=== PATIENT | male | born 1970 | race Hispanic/Latino ===

== ENCOUNTER 2017-08-19 00:44 | Emergency (ER) | payer OTHER, MEDICAID, SELFPAY ==
[2017-08-19 00:53] VITALS: BP 170/108; PULSE 107; RESP 12; TEMP 36.7; O2SAT 100; BMI 36.6
--- NOTE | 2017-08-19 00:57 | ED.SKABFB ---
HPI - Skin/Abscess/Foreign Bdy General Chief complaint: Skin/Abscess/Foreign Body Stated complaint: CELLULITIS ISNT HEALING Time Seen by Provider: 08/19/17 00:46 Source: patient Mode of arrival: ambulatory Limitations: no limitations History of Present Illness HPI narrative: 47-year-old male here for evaluation of worsening right lower extremity cellulitis. Patient states that several weeks ago he started noticing red painful areas on the inside of his right lower extremity. He states that approximately 1 week ago he went to [facility] where he was given IV antibiotics and sent home with a prescription for Bactrim and Keflex. He states that he has been taking these medications as prescribed and his right lower extremity symptoms seem to be improving until approximately 1 day ago when he noticed the redness and the swelling and the pain worsen. He has had subjective fevers at home. No vomiting. Increasing pain and redness and swelling in his right lower extremity. Related Data Allergies Allergy/AdvReac Type Severity Reaction Status Date / Time INGREDIENT: NKA - NO KNOWN Allergy Unknown Uncoded 06/30/17 12:09 ALLERGIES Review of Systems Constitutional Denies chills, Denies excessive sweating, Denies fatigue, Reports fever(s), Denies lethargy and Denies weakness Cardiovascular Denies chest pain, Denies irregular heart rhythm, Denies palpitations and Denies dyspnea Respiratory Denies cough, Denies dyspnea and Denies wheezing Gastrointestinal Gastrointestinal: Denies nausea and Denies vomiting Genitourinary Denies dysuria and Denies urinary urgency Musculoskeletal Reports joint swelling ( Bilateral knee pain that is not new) Integumentary/Breasts Comments: redness, swelling, pain to the right lower extremity from the knee to the feet, no blisters Neurologic Denies burning sensations and Denies weakness Comments: no changes in station to right lower extremity Endocrine Denies excessive sweating, Denies fatigue, Denies flushing and Denies palpitations Hematologic/Lymphatic Denies easy bruising Allergic/Immunologic Denies urticaria and Denies wheezing [facility] Social History Smoking Status: Current every day smoker Exam Initial Vital Signs Initial Vital Signs: Vital Signs Temperature 98.0 F 08/19/17 00:53 Pulse Rate 107 H 08/19/17 00:53 Respiratory Rate 12 08/19/17 00:53 Blood Pressure 170/108 H 08/19/17 00:53 Pulse Oximetry 100 08/19/17 00:53 Const General: cooperative and well developed Nutritional Appearance: well nourished Orientation: alert, awake, oriented x3 and not confused Resp Effort & Inspection: normal respiratory effort, able to speak in complete sentences, no respiratory distress and no use of accessory muscles Auscultation: clear to auscultation bilaterally, no rales, no rhonchi and no wheezes Cardio Rate: tachycardic Rhythm: regular rhythm Heart Sounds: no click, no gallops, no murmurs and no rubs Pulses: normal peripheral pulses GI Inspection: normal to inspection Palpation: soft Skin Other: patient with circumferential redness from just distal to the knee to the toes on the right lower extremity. 2+ swelling in this area. Warm to the touch. No vesicles. No pustules. Neuro Other: sensation intact to light touch right lower extremity Extrem Other: no gross deformities, swelling to right lower extremity see skin section for details Course Orders Ordered: ED Orders 08/19/17 01:30 Basic Metabolic Panel Stat Complete Blood Count AUTO DIFF Stat Lactate (Lactic Acid) Stat 08/19/17 01:55 Blood Culture Stat Vancomycin HCl/Dextrose (Vancomycin) 1,000 mg in 200 mls @ 200 mls/hr IV NOW ONE Stop: 08/19/17 03:33 Discontinued Medications Clindamycin Phosphate (Cleocin) 600 mg in 50 mls @ 50 mls/hr IV Q8H ALBERT Last Admin: 08/19/17 01:31 Dose: 50 mls/hr Vital Signs - 8 hr 08/19/17 00:53 Temperature 98.0 F Pulse Rate 107 H Respiratory Rate 12 Blood Pressure 170/108 H Pulse Oximetry 100 MDM - Skin/Abscess/Foreign Bdy Lab Data Attestation: I reviewed the patient's lab results. Result diagrams: 08/19/17 01:30 08/19/17 01:30 Lab Results 08/19/17 08/19/17 08/19/17 Range/Units 01:30 01:30 01:30 WBC 6.2 (4.5-11.0) X10^3/uL RBC 4.88 (4.5-5.9) X10^6/uL Hgb 14.6 (13.5-17.5) g/dL Hct 41.7 (41-53) % MCV 85.4 (80-100) fL MCH 29.9 (26-34) PG MCHC 35.0 (30-36) % RDW 13.2 (11.6-14.8) % Plt Count 255 (150-400) X10^3/uL Neut % (Auto) 52.7 (50-75) % Lymph % (Auto) 35.5 (25-40) % [place] % (Auto) 5.9 (3-14) % Eos % (Auto) 5.0 H (2-4) % Baso % (Auto) 0.9 (0-2) % Neut # (Auto) 3200 (3085-6083) /uL Sodium 141 (137-145) mmol/L Potassium 4.3 (3.4-5.1) mmol/L Chloride 104 (98-107) mmol/L Carbon Dioxide 22 (22-32) mmol/L BUN 12 (9-20) mg/dL Creatinine 1.20 (0.66-1.25) mg/dL Estimated GFR > 60.0 (>60) mL/min BUN/Creatinine Ratio 10.0 (6-22) Glucose 108 H (70-100) mg/dL Lactate 1.9 (0.7-2.1) mmol/L Calcium 9.2 (8.4-10.2) mg/dL MDM Narrative Medical decision making narrative: Patient with history And physical exam consistent with right lower extremity cellulitis. Has been on oral antibiotics at home which seemed to be improving for the past couple days but then worsened yesterday. Is not septic. Received IV antibiotics here in the emergency department. Secondary to his physical exam and failure of outpatient oral treatment will admit to the hospital for IV antibiotics. Also consider DVT however his physical exam here in the emergency department is more consistent with cellulitis. Discussed the case with Dr. Simmons who will admit for IV antibiotics. discussed admission with the patient and family was at bedside. They expressed understanding and agreement with plan Discharge Plan Departure Patient Disposition: Admitted As Inpatient Clinical Impression: Cellulitis
[2017-08-19] MEDS: CLINDAMYCIN 600 MG/50 ML PIGGYBACK 50 MG IV (01:31)
[2017-08-19 01:50] LABS: Add Manual Diff / Slide Review NO; Basophils Percent Auto 0.9 % (0-2); Hematocrit 41.7 % (41-53); Hemoglobin 14.6 g/dL (13.5-17.5); Lymphocytes Percent Auto 35.5 % (25-40); Mean Corpuscular Hemoglobin 29.9 PG (26-34); Mean Corpuscular Volume 85.4 fL (80-100); Monocytes Percent Auto 5.9 % (3-14); Neutrophils Absolute Auto 3200 /uL (3000-5900); Neutrophils Percent Auto 52.7 % (50-75); Platelet Count 255 X10^3/uL (150-400); Red Blood Cell Count 4.88 X10^6/uL (4.5-5.9); Red Cell Distribution Width 13.2 % (11.6-14.8); White Blood Cell Count 6.2 X10^3/uL (4.5-11.0)
[2017-08-19 01:56] LABS: Lactate (Lactic Acid) 1.9 mmol/L (0.7-2.1)
[2017-08-19 01:57] LABS: Blood Urea Nitrogen 12 mg/dL (9-20); Calcium 9.2 mg/dL (8.4-10.2); Carbon Dioxide 22 mmol/L (22-32); Chloride 104 mmol/L (98-107); Estimated Glomerular Filt Rate > 60.0 mL/min (>60); Glucose 108 mg/dL (70-100); HEMOLYSIS < 15 (0-50); Potassium 4.3 mmol/L (3.4-5.1); Sodium 141 mmol/L (137-145)
[2017-08-19 03:10] VITALS: BP 148/80; PULSE 80; RESP 18; TEMP 36.6; O2SAT 98
== END 2017-08-19 03:01 | disposition left against medical advice (07) ==
PROVIDERS: Emergency Provider Emergency Medicine
DX: L03.115 Cellulitis of right lower limb (principal)
CPT/HCPCS: 36415; 36591; 80048; 83605; 85025; 87040; 96374; 99282; 99283

== ENCOUNTER 2017-08-21 00:56 | Inpatient (IN) | payer OTHER, MEDICAID, SELFPAY ==
[2017-08-21] VITALS (9 sets, daily range): BP systolic 123–156; BP diastolic 73–90; PULSE 63–96; RESP 16–22; TEMP 36.1–36.8; O2SAT 96–99; BMI 36.6
--- NOTE | 2017-08-21 01:17 | ED.SKABFB ---
HPI - Skin/Abscess/Foreign Bdy General Chief complaint: Skin/Abscess/Foreign Body Stated complaint: CELLULITIS NOT HEALING Time Seen by Provider: 08/21/17 01:00 Source: patient Mode of arrival: ambulatory Limitations: no limitations History of Present Illness HPI narrative: 47-year-old male who I evaluated in the emergency department couple days ago for right lower extremity cellulitis. At that time he was taking Bactrim and Keflex provided by at an outside emergency department for cellulitis. The time I saw him his symptoms were not improving and I felt that he was failing outpatient treatment. We did discuss admitting to the hospital and initially he agreed to this. I talked to the hospitalist to admit him but prior to being transferred to the floor the patient changed his mind and wanted to be discharged. He did sign out against medical advice. I did switch him from Bactrim and Keflex to clindamycin. Patient returns today for no improvement in the cellulitis of his right lower extremity and potentially some worsening as he said earlier today he had streaking up the inside of his leg. Today he stated that he was willing to be admitted to the hospital. Related Data Allergies Allergy/AdvReac Type Severity Reaction Status Date / Time INGREDIENT: NKA - NO KNOWN Allergy Unknown Uncoded 06/30/17 12:09 ALLERGIES Review of Systems Constitutional Denies chills, Denies fever(s), Denies lethargy and Denies weakness Cardiovascular Denies chest pain, Denies irregular heart rhythm, Denies lightheadedness, Denies palpitations, Denies dyspnea, Denies dyspnea on exertion and Denies orthopnea Respiratory Denies cough, Denies dyspnea, Denies dyspnea on exertion and Denies wheezing Musculoskeletal Comments: Swelling and redness and pain to his right lower extremity [id number] Integumentary/Breasts Comments: Redness and swelling to his right lower extremity below the knee Neurologic Denies weakness Comments: No tingling to his right lower extremity Endocrine Denies palpitations Hematologic/Lymphatic Denies easy bruising Allergic/Immunologic Denies wheezing [facility] Social History Smoking Status: Current every day smoker Exam Initial Vital Signs Initial Vital Signs: Vital Signs Temperature 98.1 F 08/21/17 01:10 Pulse Rate 89 08/21/17 01:10 Respiratory Rate 16 08/21/17 01:10 Blood Pressure 156/90 H 08/21/17 01:10 Pulse Oximetry 96 08/21/17 01:10 Resp Effort & Inspection: normal respiratory effort, able to speak in complete sentences, no respiratory distress and no use of accessory muscles Auscultation: clear to auscultation bilaterally, no rales, no rhonchi and no wheezes Cardio Rate: regular rate Rhythm: regular rhythm Heart Sounds: no click, no gallops, no murmurs and no rubs Pulses: normal peripheral pulses Skin Other: Red, warm, swollen right lower extremity from the knee to the ankle. Does have a small amount of streaking on the inside of his leg proximal to the knee. No blisters. No pustules. No drainage. Neuro Other: Sensation intact to light touch right lower extremity Extrem Other: 2+ pitting edema right lower extremity from the knee to the foot redness at this area. No pain with movement of the knee or the ankle Course Orders Ordered: ED Orders 08/21/17 01:35 Basic Metabolic Panel Stat Blood Culture Stat Complete Blood Count AUTO DIFF Stat Lactate (Lactic Acid) Stat Vancomycin HCl/Dextrose (Vancomycin) 1,500 mg in 300 mls @ 200 mls/hr 15 mg/kg (1500 mg) IV NOW ONE Stop: 08/21/17 02:52 Ondansetron HCl 4 mg/ Sodium (Chloride) 102 mls @ 204 mls/hr IV Q6HR PRN PRN Reason: Nausea And Vomiting Oxycodone/Acetaminophen (Percocet 5/325) 1 tab PO Q4HR PRN PRN Reason: Pain, Severe Discontinued Medications Morphine Sulfate (Morphine) 4 mg IV NOW ONE Stop: 08/21/17 01:52 Vital Signs - 8 hr 08/21/17 01:10 Temperature 98.1 F Pulse Rate 89 Respiratory Rate 16 Blood Pressure 156/90 H Pulse Oximetry 96 MDM - Skin/Abscess/Foreign Bdy Lab Data Attestation: I reviewed the patient's lab results. Result diagrams: 08/21/17 01:35 08/21/17 01:35 Lab Results 08/21/17 Range/Units 01:35 WBC 7.2 (4.5-11.0) X10^3/uL RBC 4.42 L (4.5-5.9) X10^6/uL Hgb 12.8 L (13.5-17.5) g/dL Hct 38.1 L (41-53) % MCV 86.2 (80-100) fL MCH 28.9 (26-34) PG MCHC 33.5 (30-36) % RDW 13.3 (11.6-14.8) % Plt Count 240 (150-400) X10^3/uL Neut % (Auto) 58.6 (50-75) % Lymph % (Auto) 30.9 (25-40) % [place] % (Auto) 6.5 (3-14) % Eos % (Auto) 3.3 (2-4) % Baso % (Auto) 0.7 (0-2) % Neut # (Auto) 4200 (6559-0740) /uL MDM Narrative Medical decision making narrative: Patient's right lower extremity cellulitis diagnosed based on the fact that it is swollen, red, warm and painful. Has been on Keflex and Bactrim without improvement and now on clinda for the past several days without any improvement. Potentially some worsening as the patient states that there was some streaking on the upper portion of his leg this morning and her some evidence of that now. Is afebrile. Does not have an elevated white blood cell count. Some labs pending at the time of admission. I discussed the case with Dr. Simmons who accepts admitting the patient for IV antibiotics. Patient was given IV vancomycin here in the ER. I also discussed with the inpatient team the possibility of obtaining right lower extremity ultrasound for evaluation of possible DVT as this could also be causing his symptoms. I discussed the case with the patient and family members were at bedside. He agrees to be admitted to the hospital today. They expressed understanding and agreement with plan Discharge Plan Departure Patient Disposition: Admitted As Inpatient Clinical Impression: Cellulitis
[2017-08-21 01:47] LABS: Add Manual Diff / Slide Review NO; Basophils Percent Auto 0.7 % (0-2); Eosinophils Percent Auto 3.3 % (2-4); Hematocrit 38.1 % (41-53); Hemoglobin 12.8 g/dL (13.5-17.5); Lymphocytes Percent Auto 30.9 % (25-40); Mean Corpuscular HGB Conc 33.5 % (30-36); Mean Corpuscular Hemoglobin 28.9 PG (26-34); Mean Corpuscular Volume 86.2 fL (80-100); Monocytes Percent Auto 6.5 % (3-14); Neutrophils Absolute Auto 4200 /uL (3000-5900); Neutrophils Percent Auto 58.6 % (50-75); Platelet Count 240 X10^3/uL (150-400); Red Blood Cell Count 4.42 X10^6/uL (4.5-5.9); Red Cell Distribution Width 13.3 % (11.6-14.8); White Blood Cell Count 7.2 X10^3/uL (4.5-11.0)
[2017-08-21 01:56] LABS: BUN Creatinine Ratio 11.8 (6-22); Blood Urea Nitrogen 13 mg/dL (9-20); Carbon Dioxide 21 mmol/L (22-32); Chloride 105 mmol/L (98-107); Estimated Glomerular Filt Rate > 60.0 mL/min (>60); Glucose 134 mg/dL (70-100); HEMOLYSIS < 15 (0-50); Lactate (Lactic Acid) 1.8 mmol/L (0.7-2.1); Sodium 140 mmol/L (137-145)
[2017-08-21] MEDS: MORPHINE 4 MG/ML INJ IV (02:00)
[2017-08-21] MEDS: VANCOMYCIN 1,500 MG in SODIUM CHLORIDE 0.9% 500 ML 333.333 ML IV (02:09)
--- NOTE | 2017-08-21 03:10 | PC.ADMIT ---
Addendum entered by Kasandra Garrison R.N. 08/21/17 04:08: 0330 update- went to give pt pain pill, pt and spouse in the bathroom. Pt spouse asked if she could sleep in the bed with pt, told her no. pt spouse given blanket and pillow. currently they are watching tv. Original Note: Admission Note: The patient,Etienne Ramos,47 y/o, was given written information regarding hospital policies, unit procedures and contact persons. Patient's smoking status: Current every day smoker. Vital Signs - 8 hr 08/21/17 01:10 08/21/17 02:17 08/21/17 02:35 Temperature 98.1 F 98.2 F 97.5 F L Pulse Rate 89 83 74 Respiratory Rate 16 16 20 Blood Pressure 156/90 H 138/89 H Blood Pressure [Right Arm] 123/77 H Pulse Oximetry 96 97 99 Pt arrived to room 213 on a stretcher. IV vancomycin infusing at 333mL/hr. Pt tolerating well. Pt asked for sandwich and applesauce. Pt compliant with admission process and nursing assessments. Pt questions answered and instructed to call when needing assistance. Pt bed in lowest, locked position belongings and call light within reach,. pt ambulates steady gait. will continue to monitor.
[2017-08-21] MEDS: OXYCODONE/ACETAMINOPHEN 5/325 TABLET 1 TAB PO ×3 (03:26→17:38)
--- NOTE | 2017-08-21 09:42 | P.HP_ITS ---
History of Present Illness Chief complaint: CELLULITIS NOT HEALING Narrative: Etienne Ramos is a 47 year old male presents with redness and swelling in his right leg. Symptoms started several days prior to his initial ER visit which was on August 19. On that visit he was diagnosed with cellulitis and we talked about admission but the patient was reluctant due to other commitments so he was placed on oral antibiotics sent home symptoms got worse we came back in early this morning for re-evaluation the legs been more swollen and red. He has had some fever at home also. Patient History Medical History High cholesterol (Acute) Surgical History History of appendectomy (Acute) History of cholecystectomy (Acute) Hx of tonsillectomy (Acute) Family & Social History Social History: household members significant other Prior Living Arrangements House Safety & Behavioral: Feels Safe in Current Yes Environment Been Physically Hurt or No Threatened By a Person Suicidal Ideation Description None Suicide Plan Description No Plan Tobacco & Substance use: Tobacco type cigarettes Smoking Status Current every day smoker alcohol intake current alcohol intake frequency holiday/special occasion Substance Use Type does not use Meds Home Medications Medication Instructions Recorded Confirmed Type Tylenol 500 mg PO PRN PRN 08/21/17 08/21/17 History Allergies Allergy/AdvReac Type Severity Reaction Status Date / Time No Known Allergies Allergy Verified 08/21/17 05:04 Review of Systems Review of Systems All systems reviewed & are unremarkable except as noted in HPI and below Exam Vital Signs (past 8 hours): Vital Signs - 8 hr 3 08/21/17 02:17 08/21/17 02:35 08/21/17 05:53 Temperature 98.2 F 97.5 F L 97.8 F Pulse Rate 83 74 80 Respiratory Rate 16 20 20 Blood Pressure 138/89 H 124/75 H Blood Pressure [Right Arm] 123/77 H Pulse Oximetry 97 99 99 3 08/21/17 08:27 Temperature 98.3 F Pulse Rate 78 Respiratory Rate 18 Blood Pressure 126/73 H Blood Pressure [Right Arm] Pulse Oximetry 98 Pulse Oximetry 98 Oxygen Delivery Method Room Air Oxygen Flow Rate 0 Narrative Exam Narrative: Pleasant middle-aged male no acute distress HEENT exam unremarkable Neck is supple no JVD Lungs are clear Heart regular rhythm Abdomen soft nontender Lower extremities the right lower extremity is swollen edematous from the foot including the foot all the way up into the thigh there is warmth and erythema ranging from the foot all the way up into the thigh. Left leg unaffected Neuro exam awake alert no focal deficits speech normal Objective Labs Result Diagrams: 08/21/17 01:35 08/21/17 01:35 Labs: Laboratory Results - last 24 hr 08/21/17 08/21/17 08/21/17 01:35 01:35 01:35 WBC 7.2 RBC 4.42 L Hgb 12.8 L Hct 38.1 L MCV 86.2 MCH 28.9 MCHC 33.5 RDW 13.3 Plt Count 240 Neut % (Auto) 58.6 Lymph % (Auto) 30.9 [place] % (Auto) 6.5 Eos % (Auto) 3.3 Baso % (Auto) 0.7 Neut # (Auto) 4200 Sodium 140 Potassium 4.0 Chloride 105 Carbon Dioxide 21 L BUN 13 Creatinine 1.10 Estimated GFR > 60.0 BUN/Creatinine Ratio 11.8 Glucose 134 H Lactate 1.8 Calcium 9.0 Assessment & Plan Plan: Plan: One. Cellulitis right lower extremity involving nearly and the entire extremity and this has been unresponsive to oral antibiotics. Plan to place him on IV vancomycin plan to do ultrasound for DVT also. Quality VTE Deep Vein Thrombosis/Pulmonary Embolism Present on Admission: No
--- NOTE | 2017-08-21 09:42 | PC.NURSE ---
Assess- Pt tolerating breakfast well. Denies pain at this time. R.leg with 2+ edema and pinkish/red from foot up to mid thigh. Pts skin is tight and shiny this morning. S.O. at bedside in chair sleeping. Up with 1P/sba when getting up to ambulate to the restroom. Pt is resting comfortably now.
[2017-08-21] MEDS: SODIUM CHLORIDE 0.9% FLUSH 10 ML IV ×2 (10:55→20:55)
[2017-08-21] MEDS: ENOXAPARIN 40 MG/0.4 ML SYRINGE SUBCUT (10:55)
[2017-08-21] MEDS: VANCOMYCIN 1,000 MG/200 ML FROZ.PIGGY 200 MG IV (14:22)
--- NOTE | 2017-08-21 15:43 | CM.DPC ---
DCP Initial Assessment: Case reviewed, EMR reviewed and met with patient and his significant other ?JJ? (Joann Fregoso) Pt is a 47yo male admitted as Inpatient on 08/21 for skin abscess/cellulitis under the care of the hospitalist team. PCP: He does not have a PCP at this time. Primary payor is: Patient listed as having [employer], but JJ states he no longer has this. She feels he has some other form of [employer] coverage, and looked through her paperwork for any information on this but was unable to come up with anything during this interview. [facility] notified of this situation by undersigned via email; unsure where to send clinicals to. Also asked them to update information on patient current address and phone numbers, #1 emergency contact: ?JJ? Joann Fregoso who lives with him and they share the same cell phone #: [phone]. Their land line is [phone]. #2 emergency contact is his mother Angela Ramos, and gave [facility] her updated phone number and location in [place], [place] Other health care agencies used: None. Met with patient and SO ?JJ?; patient is A&O and JJ is very helpful. Introduced self as DCP, explained role and goals of DCP and as pt advocate. Both verbalized understanding. Patient expressed strong desire to go home, as he was not currently receiving IV ABX or fluid and did not understand why he was still here. Undersigned explained that some ABX are only given daily or q12hr, so perhaps that is why. Also explained importance of following through on complete recommended ABX course to prevent recurrence or ABX-resistant pathogens to be created. Both verbalized understanding. DCP met with floor nurse Archana who confirmed that pt had a 3pm dose of Vanco to receive; this was communicated to them and he was then calmer about staying in hospital and understanding the plan of treatment. Patient was independent at baseline for all ADLs prior to this hospitalization. He has not filled out any Advance Directives but they have information on this and ?JJ? is working on filling this out for him. They live in their own home. Patient drives own car independently. Neither foresees any barriers to d/c to home. Patient states he has FWW and crutches at home, if needed upon d/c. Contacted: [facility], as above, about demographic information and insurance coverage. Plan: Discharge to home when stable. DCP to follow closely. Denia Torres RN
--- NOTE | 2017-08-22 | DI.US.S_ITS ---
PROCEDURE: US PERIPH VENOUS LOW EXTREM RT INDICATIONS: RLE SWELLING TECHNIQUE: Real-time imaging, as well as color and pulse Doppler interrogation, were performed of the lower extremity deep veins from the inguinal ligament to the popliteal fossa. COMPARISON: None. FINDINGS: The deep veins are normally compressible, and free of intraluminal thrombus. Color and pulse Doppler demonstrate normal phasic intraluminal flow. There is normal augmentation response to distal compression maneuver. IMPRESSION: No deep vein thrombosis of the right lower extremity. Dictated by: Marcia Marte M.D. on 08/22/2017 at 10:27 Approved by: Marcia Marte M.D. on 08/22/2017 at 10:27
[2017-08-22] MEDS: OXYCODONE/ACETAMINOPHEN 5/325 TABLET 1 TAB PO ×2 (00:11→08:50)
[2017-08-22] MEDS: SODIUM CHLORIDE 0.9% FLUSH 10 ML IV ×2 (02:19→08:51)
[2017-08-22] MEDS: VANCOMYCIN 1,000 MG/200 ML FROZ.PIGGY 200 MG IV (02:19)
[2017-08-22] MEDS: SODIUM CHLORIDE 0.9% 250 ML 21 ML IV (02:20)
[2017-08-22 03:45] VITALS: BP 142/89; PULSE 70; RESP 20; TEMP 36.4; O2SAT 98
--- NOTE | 2017-08-22 07:03 | PC.NURSE ---
2300 6-3 assumed care of pt form outgoing shift. pt asleep, arouses to voice. at bedside. pt ambulates steady gait . side rails up x2. belongings and call light within reach. compliant with nursing assessments. will continue to monitor pt for safety. pt slept well through the night. compliant with nursing assessments. and med passes. will continue to monitor.
[2017-08-22 08:46] VITALS: BP 149/91; PULSE 75; RESP 18; TEMP 35.9; O2SAT 97
[2017-08-22] MEDS: ENOXAPARIN 40 MG/0.4 ML SYRINGE SUBCUT (08:51)
--- NOTE | 2017-08-22 09:53 | PC.NURSE ---
Assess Pt just woke up, eating and tolerating breakfast well. R.lower extremity swollen with 2+ pitting edema to foot. He is up with sba to use the bathroom. Girlfriend is in room, and sleeping with patient in his bed. Told that she would need to get in the chair to sit when [employer] in to do venous doppler for patients r. lower leg. She has already been talked to about sleeping with patient in the room but has been non-compliant. Pt given 1 percocet for pain 11/29 to r.lower leg. This has been helpful to patient. He is resting comfortably now. Drinking well throughout the day. Getting Vancomycin iv q 12 hours.
--- NOTE | 2017-08-22 11:41 | CM.DPC ---
DCP Ongoing: DCP went to see patient in his room and both he and S/O JJ are very heavily and soundly asleep, so did not wake them. Asked attending nurse Archana for update. Per her report, U/S done on lower extremity showed no evidence of DVT. There is a pending 1500 dose of Vanco (on a q12h schedule), and she plans to give him that unless he is deemed stable to go home and is discharged before then. TO DO: Still no update on their insurance information, so it's important to try to speak with JJ prior to patient discharge to see if she found any paperwork about patient's current insurance coverage. [facility] was notified of this yesterday via email. Plan: Discharge to home when stable. No mention at this time of IV ABX at home, home infusion, etc. Still early in process. Need continued close following. Denia Torres RN
[2017-08-22 12:27] VITALS: BP 134/77; PULSE 67; RESP 20; TEMP 36.6; O2SAT 98
--- NOTE | 2017-08-22 13:36 | PC.NURSE ---
pt left AMA with girlfriend. saline lock dc'd with cath intact and Dr. Cedeño notified. pt signed AMA form.
--- NOTE | 2017-08-22 13:40 | CM.DPC ---
Discharged/AMA: Per Charge Nurse Caty, patient and S/O packed up and abruptly left AMA a short time ago. She was able to contact Dr. Cedeño who spoke with the patient prior to leaving. He is to continue on oral ABX at home. Caty removed patient's IV. No further interventions to be made by DC planners, and insurance verification alert (no apparent coverage) was sent to [facility] [employer] [facility] yesterday by undersigned. Denia Torres RN
--- NOTE | 2017-08-22 20:35 | PM.DS.1 ---
History of Present Illness Chief complaint: CELLULITIS NOT HEALING Narrative: Etienne Ramos is a 47 year old male Etienne Ramos is a 47 year old male presents with redness and swelling in his right leg. Symptoms started several days prior to his initial ER visit which was on August 19. On that visit he was diagnosed with cellulitis and we talked about admission but the patient was reluctant due to other commitments so he was placed on oral antibiotics sent home symptoms got worse we came back in early this morning for re-evaluation the legs been more swollen and red. He has had some fever at home also. Discharge Providers Date of admission: 08/21/17 02:40 Discharge provider: Osito Cedeño MD Summary Discharge Diagnosis: One. Cellulitis right lower extremity Hospital Course: Patient admitted with cellulitis that was unresponsive to outpatient treatment. He was treated with IV vancomycin ultrasound was done to rule out a DVT he has had improvement overnight the patient however is insisting on leaving against medical advise so he was discharged today really before I thought he was clinically ready to go he will resume his oral antibiotics that he was taking prior to admission follow up with primary care Time Spent with Patient Less than 30 minutes Exam Vital Signs (past 8 hours): Pulse Oximetry 98 Oxygen Delivery Method Room Air Oxygen Flow Rate 0 Objective Labs Result Diagrams: 08/21/17 01:35 08/21/17 01:35 Discharge Plan Discharge Plan Patient Disposition: Left Against Medical Advice Discharge Data Attending Provider: Tanner Simmons Admit Date/Time: 08/21/17 02:40 Quality VTE Deep Vein Thrombosis/Pulmonary Embolism Present on Admission: No
== END 2017-08-22 13:38 | disposition left against medical advice (07) | DRG 383 ==
LOC: ED 01:53 → AC 02:41
PROVIDERS: Admitting Provider Internal Medicine; Emergency Provider Emergency Medicine; Visit Provider Internal Medicine
DX: L03.115 Cellulitis of right lower limb (principal); Z53.21 Procedure and treatment not carried out due to patient leaving prior to being seen by health care provider
CPT/HCPCS: 36415; 36591; 80048; 83605; 85025; 87040; 93971; 96374; 99282; 99284; J1650; J2270; J3370

== ENCOUNTER 2018-08-26 20:33 | Emergency (ER) | payer OTHER, MEDICAID, SELFPAY ==
[2017-08-21 02:35] VITALS: BMI 36.6
[2018-08-26 20:41] VITALS: BP 181/101; PULSE 71; RESP 16; TEMP 36.5; O2SAT 98; BMI 36.3
--- NOTE | 2018-08-26 20:51 | ED.GENADULT ---
HPI - General Adult General Chief complaint: Abdominal Pain Stated complaint: states horrible liver pain Time Seen by Provider: 08/26/18 20:48 Source: patient Mode of arrival: ambulatory Limitations: no limitations History of Present Illness HPI narrative: Patient is a 48-year-old male here for evaluation of epigastric abdominal pain. Patient states that the pain started this morning. He also states he is having pain with swallowing in his esophagus. He states that the end of last year he was admitted to an outside hospital for ?sepsis? he stated during that time he was told that his liver was only working at 10%. He was concerned that a brought him in this evening was liver pain. He also states he was started on antibiotic yesterday for a dental infection. He has taken 2 doses of this medicine. No vomiting. No fevers. No change in bowel habits. Related Data Home Medications Medication Instructions Recorded Confirmed Tylenol 500 mg PO PRN PRN 08/21/17 08/21/17 Previous Rx's Medication Instructions Recorded esomeprazole magnesium [Nexium 20 mg PO DAILY #30 tab 08/26/18 24HR] Allergies Allergy/AdvReac Type Severity Reaction Status Date / Time No Known Allergies Allergy Verified 08/21/17 05:04 Review of Systems Constitutional Denies chills, Denies fever(s) and Denies headache(s) ENT Ears, Nose, Mouth, and Throat: Denies headache(s) Cardiovascular Denies chest pain and Denies dyspnea Respiratory Denies dyspnea Gastrointestinal Gastrointestinal: Reports abdominal pain, Denies melena, Denies bloating, Denies change in stool character, Denies coffee ground emesis, Denies nausea and Denies vomiting Comments: Pain with swallowing Genitourinary Denies dysuria Musculoskeletal Denies myalgias and Denies arthralgias Integumentary/Breasts Denies rash Neurologic Denies headache(s) Hematologic/Lymphatic Denies easy bleeding and Denies easy bruising [facility] Medical History High cholesterol (Acute) Surgical History History of appendectomy (Acute) History of cholecystectomy (Acute) Hx of tonsillectomy (Acute) Social History household members: significant other Smoking Status: Current every day smoker alcohol intake: current Social History household members: significant other Smoking Status: Current every day smoker alcohol intake: current Exam Initial Vital Signs Initial Vital Signs: Vital Signs Temperature 97.7 F 08/26/18 20:41 Pulse Rate 71 08/26/18 20:41 Respiratory Rate 16 08/26/18 20:41 Blood Pressure 181/101 H 08/26/18 20:41 Pulse Oximetry 98 08/26/18 20:41 Const General: cooperative, well developed, well groomed and No acute distress Orientation: alert and awake HENMT Head: normal to inspection and normocephalic Resp Effort & Inspection: normal respiratory effort Auscultation: clear to auscultation bilaterally Cardio Rate: regular rate Rhythm: regular rhythm Pulses: radial pulses present GI Inspection: non-distended Palpation: soft, guarding and tender (Epigastric bilateral upper) Skin Lesions: no lesions Rashes: no rashes Neuro General: alert and awake Cognition: normal cognition Speech: speech normal Extrem General: normal to inspection and capillary refill normal Psych Appearance: grossly normal and well kempt Course Orders Ordered: ED Orders 08/26/18 20:44 EKG-12 Lead Stat 08/26/18 21:00 Acetaminophen Stat Complete Blood Count AUTO DIFF Stat Comprehensive Metabolic Panel Stat Ethanol (ETOH) Stat Lipase Stat Partial Thromboplastin Time Stat Prothrombin Time INR Stat 08/26/18 22:09 CT abdomen pelvis w con Stat Discontinued Medications Sodium Chloride (Normal Saline 0.9%) 1,000 mls @ 1,000 mls/hr IV BOLUS ONE Stop: 08/26/18 23:09 Last Infusion: 08/26/18 23:31 Dose: 1,000 mls/hr Admin: 08/26/18 22:16 Dose: 1,000 mls/hr Pantoprazole Sodium 80 mg/ (Sodium Chloride) 100 mls @ 10 mls/hr IV CONT ALBERT Last Admin: 08/27/18 00:04 Dose: Not Given Morphine Sulfate (Morphine) 4 mg IV NOW ONE Stop: 08/26/18 21:13 Last Admin: 08/26/18 21:17 Dose: 4 mg Pantoprazole Sodium (Protonix) 40 mg IV NOW ONE Stop: 08/26/18 21:10 Last Admin: 08/26/18 21:14 Dose: 40 mg Vital Signs - 8 hr 08/26/18 20:41 08/26/18 22:34 Temperature 97.7 F Pulse Rate 71 71 Respiratory Rate 16 16 Blood Pressure 181/101 H Blood Pressure [Right Arm] 159/86 H Pulse Oximetry 98 100 Medical Decision Making Lab Data Lab results reviewed: Yes I reviewed the patient's lab results. Result diagrams: 08/26/18 21:00 08/26/18 21:00 Lab Results 08/26/18 08/26/18 08/26/18 Range/Units 21:00 21:00 21:00 WBC 5.6 (4.5-11.0) X10^3/uL RBC 4.66 (4.5-5.9) X10^6/uL Hgb 13.3 L (13.5-17.5) g/dL Hct 39.1 L (41-53) % MCV 83.9 (80-100) fL MCH 28.6 (26-34) PG MCHC 34.1 (30-36) % RDW 13.9 (11.6-14.8) % Plt Count 166 (150-400) X10^3/uL Neut % (Auto) 60.8 (50-75) % Lymph % (Auto) 28.5 (25-40) % [place] % (Auto) 6.2 (3-14) % Eos % (Auto) 4.1 H (2-4) % Baso % (Auto) 0.4 (0-2) % Neut # (Auto) 3400 (5363-1612) /uL Lymph # (Auto) 1600 (8988-8744) /uL [place] # (Auto) 400 (0-900) /uL Eos # (Auto) 200 (0-450) /uL Baso # (Auto) 0 (0-100) /uL PT 9.9 L (10.1-12.7) SECONDS INR 0.9 (0.9-1.3) APTT 33 (26.4-36.2) SECONDS Sodium 138 (137-145) mmol/L Potassium 4.2 (3.4-5.1) mmol/L Chloride 102 (98-107) mmol/L Carbon Dioxide 29 (22-32) mmol/L BUN 11 (9-20) mg/dL Creatinine 0.80 (0.66-1.25) mg/dL Estimated GFR > 60.0 (>60) mL/min BUN/Creatinine Ratio 13.8 (6-22) Glucose 119 H (70-100) mg/dL Calcium 9.2 (8.4-10.2) mg/dL Total Bilirubin 0.3 (0.2-1.3) mg/dL AST 32 (17-59) IU/L ALT 23 (21-72) IU/L Alkaline Phosphatase 122 (38-126) U/L Total Protein 7.6 (6.3-8.2) g/dL Albumin 3.9 (3.5-5.0) g/dL Globulin 3.7 (1.7-4.1) g/dL Albumin/Globulin Ratio 1.1 (1.0-2.8) Lipase 60 (23-300) U/L Acetaminophen (10-30) ug/mL Ethyl Alcohol mg/dL 08/26/18 Range/Units 21:00 WBC (4.5-11.0) X10^3/uL RBC (4.5-5.9) X10^6/uL Hgb (13.5-17.5) g/dL Hct (41-53) % MCV (80-100) fL MCH (26-34) PG MCHC (30-36) % RDW (11.6-14.8) % Plt Count (150-400) X10^3/uL Neut % (Auto) (50-75) % Lymph % (Auto) (25-40) % [place] % (Auto) (3-14) % Eos % (Auto) (2-4) % Baso % (Auto) (0-2) % Neut # (Auto) (5497-4617) /uL Lymph # (Auto) (6541-9389) /uL [place] # (Auto) (0-900) /uL Eos # (Auto) (0-450) /uL Baso # (Auto) (0-100) /uL PT (10.1-12.7) SECONDS INR (0.9-1.3) APTT (26.4-36.2) SECONDS Sodium (137-145) mmol/L Potassium (3.4-5.1) mmol/L Chloride (98-107) mmol/L Carbon Dioxide (22-32) mmol/L BUN (9-20) mg/dL Creatinine (0.66-1.25) mg/dL Estimated GFR (>60) mL/min BUN/Creatinine Ratio (6-22) Glucose (70-100) mg/dL Calcium (8.4-10.2) mg/dL Total Bilirubin (0.2-1.3) mg/dL AST (17-59) IU/L ALT (21-72) IU/L Alkaline Phosphatase (38-126) U/L Total Protein (6.3-8.2) g/dL Albumin (3.5-5.0) g/dL Globulin (1.7-4.1) g/dL Albumin/Globulin Ratio (1.0-2.8) Lipase (23-300) U/L Acetaminophen < 10 L (10-30) ug/mL Ethyl Alcohol < 10 mg/dL Urine Dip Bedside Urine Glucose Negative Bedside Urine Bilirubin - Negative Bedside Urine Ketone - Negative Urine Specific [place] 1.025 Bedside Urine Occult Blood - Negative Bedside Urine pH 6.0 Bedside Urine Protein - Negative Bedside Urine Urobilinogen - Negative Bedside Urine Nitrite - Negative Bedside Urine Leukocytes - Negative Esterase Point of care testing: Urine Dip Bedside Urine Glucose Negative Bedside Urine Bilirubin - Negative Bedside Urine Ketone - Negative Urine Specific [place] 1.025 Bedside Urine Occult Blood - Negative Bedside Urine pH 6.0 Bedside Urine Protein - Negative Bedside Urine Urobilinogen - Negative Bedside Urine Nitrite - Negative Bedside Urine Leukocytes - Negative Esterase Imaging Data CT scan - abdomen: Radiologist's impression: Pyloric wall edema with possible penetrating ulcer along the medial wall. Considerable gastric distention, possible partial high-grade gastric outlet obstruction. ECG Data Attestation: I personally reviewed and interpreted this ECG as follows: Prior ECG tracings: not available for review Interpretation: Sinus rhythm Ventricular rate is 64 Normal axis Normal QRS Normal QTC No ST T wave changes MDM Narrative Medical decision making narrative: I did discuss the case with Dr. Moreno with General surgery who stated that this is not an emergent surgical issue. He stated that he has be placed on a Protonix drip and made NPO. He stated that the patient started to have vomiting we could place an NG tube however we should avoid this secondary to the potential for varices given the patient's alcohol abuse. I did discuss case with NATHAN Doss who will admit the patient for further evaluation and treatment. I went in and talked with the patient and family member who is at bedside regarding his CT findings. I did inform him that his CT did show what appeared to be an ulcer which is most likely the cause of his symptoms. I did inform him that his liver enzymes were normal. He was surprised by this stating that he thought that his liver was only operating at ?10% ?. When I informed the patient that the recommendations were to admit him to the hospital for IV medications and further evaluation the patient stated he did not want to stay. He stated that he had ?family ?at home. His family at bedside tried to convince him to stay however he did not want to. The patient was alert and oriented x3 and in my opinion had the capacity to make decisions. I informed him that the ulcer could progress to a perforation which could cause a worsening infection and potentially . The patient expressed understanding of this. His family at bedside also expressed understanding of this. Will send him home with a prescription for Nexium. He was informed that he could return to the emergency department at any point if he would like to be further treated. Patient signed out against medical advice. Discharge Plan Departure Patient Disposition: Left Against Medical Advice Clinical Impression: Gastric ulcer Qualifiers: Gastric ulcer chronicity: acute Gastric ulcer complication status: without hemorrhage or perforation Qualified Code(s): K25.3 - Acute gastric ulcer without hemorrhage or perforation Discharge Date/Time: 08/26/18 23:50 Interventions: ED Discharge Assessment Last Done: 08/26/18 23:50 Instructions: DI for Gastric Ulcer Activity Restrictions/Additional Instructions: After our discussion about your findings of the CT scan and after my recommendation that you be admitted to the hospital for further evaluation and treatment specifically discussion about how your symptoms could worsen leading to a perforation in your stomach which could lead to worsening infection and even you decided to leave the emergency department against medical advice. I highly recommend that he start taking the medication that you were given a prescription for as directed. Contact your primary care doctor for a follow-up. You can return to the emergency department at any time if you wish to complete your treatment. Prescriptions: New Nexium 24HR 20 mg tablet,delayed release (DR/EC) 20 mg PO DAILY Qty: 30 RF: 0 No Action Tylenol 500 mg PO PRN PRN (Reason: Pain (Scale Score 1-3)) RF: 0 Stand Alone Forms: Against Medical Advice
[2018-08-26] MEDS: PANTOPRAZOLE 40 MG VIAL IV (21:14)
[2018-08-26 21:17] LABS: Add Manual Diff / Slide Review NO; Basophils Absolute Auto 0 /uL (0-100); Basophils Percent Auto 0.4 % (0-2); Eosinophils Absolute Auto 200 /uL (0-450); Eosinophils Percent Auto 4.1 % (2-4); Hematocrit 39.1 % (41-53); Hemoglobin 13.3 g/dL (13.5-17.5); Lymphocytes Absolute Auto 1600 /uL (1100-4500); Lymphocytes Percent Auto 28.5 % (25-40); Mean Corpuscular HGB Conc 34.1 % (30-36); Mean Corpuscular Hemoglobin 28.6 PG (26-34); Mean Corpuscular Volume 83.9 fL (80-100); Monocytes Absolute Auto 400 /uL (0-900); Monocytes Percent Auto 6.2 % (3-14); Neutrophils Absolute Auto 3400 /uL (1500-7000); Neutrophils Percent Auto 60.8 % (50-75); Platelet Count 166 X10^3/uL (150-400); Red Blood Cell Count 4.66 X10^6/uL (4.5-5.9); Red Cell Distribution Width 13.9 % (11.6-14.8); White Blood Cell Count 5.6 X10^3/uL (4.5-11.0)
[2018-08-26] MEDS: MORPHINE 4 MG/ML INJ IV (21:17)
[2018-08-26 21:37] LABS: Alanine Aminotransferase 23 IU/L (21-72); Albumin 3.9 g/dL (3.5-5.0); Albumin Globulin Ratio 1.1 (1.0-2.8); Alkaline Phosphatase 122 U/L (38-126); Aspartate Aminotransferase 32 IU/L (17-59); BUN Creatinine Ratio 13.8 (6-22); Bilirubin Total 0.3 mg/dL (0.2-1.3); Blood Urea Nitrogen 11 mg/dL (9-20); Calcium 9.2 mg/dL (8.4-10.2); Carbon Dioxide 29 mmol/L (22-32); Chloride 102 mmol/L (98-107); Estimated Glomerular Filt Rate > 60.0 mL/min (>60); Globulin 3.7 g/dL (1.7-4.1); Glucose 119 mg/dL (70-100); HEMOLYSIS 38 (0-50); Lipase 60 U/L (23-300); Potassium 4.2 mmol/L (3.4-5.1); Sodium 138 mmol/L (137-145); Total Protein 7.6 g/dL (6.3-8.2)
[2018-08-26 21:41] LABS: INR 0.9 (0.9-1.3); Prothrombin Time 9.9 SECONDS (10.1-12.7)
[2018-08-26 21:44] LABS: PTT Partial Thromboplastin Tim 33 SECONDS (26.4-36.2)
[2018-08-26 21:47] LABS: Acetaminophen < 10 ug/mL (10-30); Ethanol (ETOH) < 10 mg/dL
--- NOTE | 2018-08-26 22:09 | DI.CT.S_ITS ---
PROCEDURE: CT ABDOMEN PELVIS W CON INDICATIONS: Epigastric left upper quadrant pain TECHNIQUE: After the administration of intravenous contrast, 5 mm thick sections acquired from the diaphragm to the symphysis. 5 mm coronal and sagittal reformats were acquired. For radiation dose reduction, the following was used: automated exposure control, adjustment of mA and/or kV according to patient size. COMPARISON: [facility], CT, ABDOMEN/PELVIS WITH CONTRAST, 05/14/2008, 13:33. [facility], CR, ABDOMEN ACUTE SERIES, 05/14/2008, 11:48. FINDINGS: Image quality: Excellent. ABDOMEN: Lung bases: Mild atelectasis can be seen within the left lower lobe. Heart size is normal. Solid organs: Liver is normal in size and enhancement. Gallbladder has been removed. Biliary system is non dilated. Pancreas enhances normally. Spleen is mildly enlarged, measuring 14 cm in greatest axial dimension. No adrenal nodules. Kidneys demonstrate normal size and enhancement, without hydronephrosis. Peritoneum and bowel: The stomach is prominent in size. The pylorus is prominent and appears edematous. There is an apparent penetrating ulcer seen of the pylorus, as seen on series 4 image 29, at the 1 o'clock position on coronal images. Bowel loops demonstrate normal wall thickness and caliber. No free fluid or air. The appendix is not seen. Nodes and vessels: No retroperitoneal or mesenteric adenopathy by size criteria. Aorta and inferior vena cava are normal in size. Miscellaneous: A mild periumbilical hernia is seen, containing fat. PELVIS: Genitourinary: Bladder wall thickness is mild circumferentially thickened. Miscellaneous: No inguinal hernias or adenopathy. Bones: No suspicious bony lesions. No vertebral body compression fractures. Mild dextroconvex scoliotic curvature is seen. This patient has transitional lumbar anatomy. For the purposes of this examination, the level with the last well-developed pair of ribs is considered to be T12. By this numbering scheme, the L5 level is transitional and partially sacralized. Focal lower lumbar spine degenerative changes are seen. IMPRESSION: Prominent stomach size, with a prominent, edematous pylorus. Gastric outlet obstruction is presumed. There is an apparent penetrating ulcer of the pylorus itself. The pylorus demonstrated a normal appearance in 2008. Incidental note is made of: Cholecystectomy Mild splenomegaly Fat-containing periumbilical hernia Dextroconvex curvature Transitional lumbar anatomy Lower lumbar spine degenerative change Note: No significant discrepancy from the preliminary report. Dictated by: Pk Tai M.D. on 08/27/2018 at 7:23 Approved by: Pk Tai M.D. on 08/27/2018 at 7:31
[2018-08-26] MEDS: SODIUM CHLORIDE 0.9% 1,000 ML 1000 ML IV (22:16)
[2018-08-26 22:34] VITALS: BP 159/86; PULSE 71; RESP 16; O2SAT 100
== END 2018-08-26 23:50 | disposition left against medical advice (07) ==
PROVIDERS: Emergency Provider Emergency Medicine
DX: K25.3 Acute gastric ulcer without hemorrhage or perforation (principal); R10.13 Epigastric pain; Z53.20 Procedure and treatment not carried out because of patient's decision for unspecified reasons
CPT/HCPCS: 36591; 74177; 80053; 80320; 80329; 81003; 83690; 85025; 85610; 85730; 93005; 96361; 96374; 96375; 99283; 99285; C9113; G0480; J2270; Q9967

== ENCOUNTER 2018-08-27 18:02 | Inpatient (IN) | payer OTHER, MEDICAID, SELFPAY ==
[2017-08-21 02:35] VITALS: BMI 36.6
[2018-08-27 18:11] VITALS: BP 187/95; PULSE 79; RESP 22; TEMP 36.6; O2SAT 97
--- NOTE | 2018-08-27 18:23 | ED_ITS ---
HPI - Abdominal Pain General Chief Complaint: Abdominal Pain Stated Complaint: Ulcer to be admitted Time Seen by Provider: 08/27/18 18:17 Source: patient Mode of arrival: ambulatory Limitations: no limitations History of Present Illness HPI narrative: 48-year-old male who I evaluated here in the emergency department yesterday and had a CT scan concerning for a gastric/duodenal ulcer with gastric outlet obstruction. The recommendation at that time was the patient needed to be admitted to the hospital for IV PPI and NPO and potentially an NG tube if vomiting occurred. I did talk with surgery at the time who stated that this was not currently a surgical issue but also agreed the patient needed vented to the hospital for observation. The patient left against medical advice. He was given a prescription for Nexium which he has not filled. He returns today for continued pain. He states that it potentially is worse today than what it was yesterday. He now has nausea but no vomiting. He also states he has had some dark-colored stools recently but none today. He states he is now willing to be admitted to the hospital. Related Data Home Medications Medication Instructions Recorded Confirmed Tylenol 500 mg PO PRN PRN 08/21/17 08/21/17 Previous Rx's Medication Instructions Recorded esomeprazole magnesium [Nexium 20 mg PO DAILY #30 tab 08/26/18 24HR] Allergies Allergy/AdvReac Type Severity Reaction Status Date / Time No Known Allergies Allergy Verified 08/21/17 05:04 Review of Systems Constitutional Denies fever(s) Cardiovascular Denies chest pain and Denies dyspnea Respiratory Denies cough and Denies dyspnea Gastrointestinal Gastrointestinal: Reports abdominal pain, Denies constipation, Reports nausea and Denies vomiting Genitourinary Denies dysuria Musculoskeletal Denies myalgias and Denies arthralgias Integumentary/Breasts Denies rash Hematologic/Lymphatic Denies easy bleeding and Denies easy bruising [facility] Medical History High cholesterol (Acute) Surgical History (Updated 08/27/18 @ 19:40 by Darrell Rivas DO) H/O exploratory laparotomy (Acute) History of appendectomy (Acute) History of cholecystectomy (Acute) Hx of tonsillectomy (Acute) Social History household members: significant other Smoking Status: Current every day smoker alcohol intake: current Social History household members: significant other Smoking Status: Current every day smoker alcohol intake: current Exam Initial Vital Signs Initial Vital Signs: Vital Signs Temperature 97.9 F 08/27/18 18:11 Pulse Rate 79 08/27/18 18:11 Respiratory Rate 22 08/27/18 18:11 Blood Pressure 187/95 H 08/27/18 18:11 Pulse Oximetry 97 08/27/18 18:11 Const General: cooperative, comfortable, well developed, well groomed and No acute distress Orientation: alert and awake HENMT Head: normal to inspection and normocephalic Resp Effort & Inspection: normal respiratory effort Auscultation: clear to auscultation bilaterally Cardio Rate: regular rate Rhythm: regular rhythm GI Inspection: non-distended Palpation: soft, No firm and tender (Epigastric pain) Skin Lesions: no lesions Rashes: no rashes Neuro General: alert and awake Cognition: normal cognition Extrem General: normal to inspection and capillary refill normal Course Orders Ordered: ED Orders 08/27/18 18:25 XR abdomen 1V Stat 08/27/18 18:40 Complete Blood Count AUTO DIFF Stat Hepatic (Liver) Panel Stat Lipase Stat 08/27/18 19:08 Lactate (Lactic Acid) Stat 08/27/18 19:41 Basic Metabolic Panel Stat Pantoprazole Sodium 80 mg/ (Sodium Chloride) 100 mls @ 10 mls/hr IV CONT ALBERT Last Admin: 08/27/18 19:11 Dose: 8 mg/hr, 10 mls/hr Discontinued Medications Morphine Sulfate (Morphine Sulfate) 4 mg IV NOW ONE Stop: 08/27/18 19:09 Last Admin: 08/27/18 19:16 Dose: 4 mg Ondansetron HCl (Zofran) 4 mg IV NOW ONE Stop: 08/27/18 18:24 Pantoprazole Sodium (Protonix) 80 mg IV NOW ONE Stop: 08/27/18 18:24 Last Admin: 08/27/18 19:11 Dose: 80 mg Vital Signs - 8 hr 08/27/18 18:11 Temperature 97.9 F Pulse Rate 79 Respiratory Rate 22 Blood Pressure 187/95 H Pulse Oximetry 97 MDM - Abdominal Pain Lab Data Attestation: I reviewed the patient's lab results. Result diagrams: 08/27/18 18:40 Lab Results 08/27/18 08/27/18 08/27/18 Range/Units 18:40 18:40 19:08 WBC 4.6 (4.5-11.0) X10^3/uL RBC 4.82 (4.5-5.9) X10^6/uL Hgb 13.6 (13.5-17.5) g/dL Hct 40.6 L (41-53) % MCV 84.2 (80-100) fL MCH 28.2 (26-34) PG MCHC 33.5 (30-36) % RDW 13.7 (11.6-14.8) % Plt Count 136 L (150-400) X10^3/uL Neut % (Auto) 62.7 (50-75) % Lymph % (Auto) 29.1 (25-40) % [place] % (Auto) 3.0 (3-14) % Eos % (Auto) 4.6 H (2-4) % Baso % (Auto) 0.6 (0-2) % Neut # (Auto) 2900 (8788-9776) /uL Lymph # (Auto) 1300 (2896-5255) /uL [place] # (Auto) 100 (0-900) /uL Eos # (Auto) 200 (0-450) /uL Baso # (Auto) 0 (0-100) /uL Lactate 1.6 (0.7-2.1) mmol/L Total Bilirubin 0.4 (0.2-1.3) mg/dL Conjugated Bilirubin 0.0 (0.0-0.3) md/dL Unconjugated Bilirubin 0.1 (0.0-1.1) mg/dL AST 33 (17-59) IU/L ALT 22 (21-72) IU/L Alkaline Phosphatase 128 H (38-126) U/L Total Protein 7.8 (6.3-8.2) g/dL Albumin 4.0 (3.5-5.0) g/dL Globulin 3.8 (1.7-4.1) g/dL Albumin/Globulin Ratio 1.1 (1.0-2.8) Lipase 58 (23-300) U/L Imaging Data Chest x-ray: Radiologist's impression: [address] [address] XRay Report Signed Patient: Etienne Ramos JMR#: [id number] : 1970Acct:[id number] Age/Sex: 48 / MDate of Service: 08/27/18 Loc: ED Accession Number: [id number] Procedure: XR abdomen 1V Ordering Provider: Darrell Rivas D.O. PROCEDURE: XR ABDOMEN 1V INDICATIONS: known ulcer eval for free air TECHNIQUE: One view of the abdomen acquired. COMPARISON: [facility], CT, CT ABDOMEN PELVIS W CON, 08/26/2018, 22:23. FINDINGS: Surgical changes and devices: None. Bowel: Similar appearance of bowel gas pattern with moderate fecal burden seen throughout the colon as well as gastric distention. No radiographic evidence to suggest free air. Lung bases are clear. Soft tissues: No suspicious abdominal calcifications. Visualized solid organ contours appear normal in size. Bones: No suspicious bony lesions. IMPRESSION: No radiographic evidence for free air. If there is persistent clinical concern, consider lateral decubitus views of the abdomen for further evaluation. Dictated by: Reji Chang M.D. on 08/27/2018 at 18:57 Approved by: Reji Chang M.D. on 08/27/2018 at 19:02 MDM Narrative Medical decision making narrative: Patient's labs today is relatively unchanged from yesterday. X-ray was obtained to evaluate for free air which it did not show. Patient does not have a surgical abdomen. Started on Protonix. Was given pain medication. Discussed the case with NATHAN Doss the night hospitalist who will admit the patient for further evaluation treatment. Patient is willing to be admitted. Discharge Plan Departure Patient Disposition: Admitted as Observation Clinical Impression: Gastric ulcer Qualifiers: Gastric ulcer chronicity: acute Gastric ulcer complication status: with hemorrhage Qualified Code(s): K25.0 - Acute gastric ulcer with hemorrhage Admit Date/Time: 08/27/18 19:31 Admit Provider: Eric Doss
[2018-08-27 18:54] LABS: Add Manual Diff / Slide Review NO; Basophils Absolute Auto 0 /uL (0-100); Basophils Percent Auto 0.6 % (0-2); Eosinophils Absolute Auto 200 /uL (0-450); Eosinophils Percent Auto 4.6 % (2-4); Hematocrit 40.6 % (41-53); Hemoglobin 13.6 g/dL (13.5-17.5); Lymphocytes Absolute Auto 1300 /uL (1100-4500); Lymphocytes Percent Auto 29.1 % (25-40); Mean Corpuscular HGB Conc 33.5 % (30-36); Mean Corpuscular Hemoglobin 28.2 PG (26-34); Mean Corpuscular Volume 84.2 fL (80-100); Monocytes Absolute Auto 100 /uL (0-900); Neutrophils Absolute Auto 2900 /uL (1500-7000); Neutrophils Percent Auto 62.7 % (50-75); Platelet Count 136 X10^3/uL (150-400); Red Blood Cell Count 4.82 X10^6/uL (4.5-5.9); Red Cell Distribution Width 13.7 % (11.6-14.8); White Blood Cell Count 4.6 X10^3/uL (4.5-11.0)
[2018-08-27 19:04] LABS: Alanine Aminotransferase 22 IU/L (21-72); Albumin Globulin Ratio 1.1 (1.0-2.8); Alkaline Phosphatase 128 U/L (38-126); Aspartate Aminotransferase 33 IU/L (17-59); Bilirubin Total 0.4 mg/dL (0.2-1.3); Bilirubin Unconjugated 0.1 mg/dL (0.0-1.1); Globulin 3.8 g/dL (1.7-4.1); HEMOLYSIS 20 (0-50); Lipase 58 U/L (23-300); Total Protein 7.8 g/dL (6.3-8.2)
[2018-08-27] MEDS: PANTOPRAZOLE 80 MG in SODIUM CHLORIDE 0.9% 100 ML 10 ML IV ×2 (19:11→21:19)
[2018-08-27] MEDS: PANTOPRAZOLE 40 MG VIAL 80 MG IV (19:11)
[2018-08-27] MEDS: MORPHINE 5 MG/ML INJ 4 MG IV (19:16)
[2018-08-27 19:24] LABS: Lactate (Lactic Acid) 1.6 mmol/L (0.7-2.1)
[2018-08-27 19:48] VITALS: BP 149/84; PULSE 68; RESP 14; O2SAT 98
[2018-08-27 19:49] VITALS: BMI 29.9
[2018-08-27 20:26] LABS: BUN Creatinine Ratio 12.5 (6-22); Blood Urea Nitrogen 10 mg/dL (9-20); Calcium 9.4 mg/dL (8.4-10.2); Carbon Dioxide 28 mmol/L (22-32); Chloride 103 mmol/L (98-107); Estimated Glomerular Filt Rate > 60.0 mL/min (>60); Glucose 108 mg/dL (70-100); HEMOLYSIS 25 (0-50); Potassium 4.1 mmol/L (3.4-5.1); Sodium 139 mmol/L (137-145)
[2018-08-27 20:28] VITALS: BP 143/83; PULSE 75; RESP 18; TEMP 36.8; O2SAT 100
--- NOTE | 2018-08-27 20:29 | PM.HP.1 ---
History of Present Illness Date Patient Seen: 08/27/18 Time Patient Seen: 20:29 Chief complaint: Ulcer to be admitted Narrative: Mr. Etienne Ramos is a 48-year-old male patient with a past medical history of hospitalization for severe sepsis and liver failure in February for which he has recovered and symptoms of gastroesophageal reflux disorder presents today for worsening abdominal pain. The patient was seen in the emergency department yesterday on 08/26/2018 with epigastric pain with findings on CT scan of prominently dilated stomach edematous gastric mucosa with penetrating gastric erosion and concern for gastric outlet obstruction. The patient complains epigastric fullness with heartburn and pressure since his hospitalization in February and has been taking Pepcid AC daily. In February he stopped drinking and he also relates a history of bilateral knee osteoarthritis described is bone on bone but denies use of Tylenol or nonsteroidal anti-inflammatory medications. 3-4 days ago the patient had an onset of epigastric pain which she describes as sharp and burning that has been escalating in severity. When seen in the ER yesterday he left the ER against medical advice and was prescribed Nexium which he never picked up. Returns today with worsening pain which he describes as an 8/10 that has been associated with nausea but no vomiting. He reports eating breakfast and lunch today without regurgitation. He denies radiation of the pain and associated fevers or chills, lightheadedness or dizziness. He denies chest pain or palpitations, shortness of breath cough or wheezing. He is a current smoker approximately 1/2 pack per day. He denies diarrhea constipation but does report passing foul-smelling dark stools. Upon arrival in the ER the patient is afebrile with a temperature of 97.9?, heart rate of 79, hypertensive at 187/95, respirations of 22 and saturating 97% on room air. He underwent abdominal CT yesterday with the findings as described above and had an abdominal x-ray repeated today with no findings of free air. On labs today he had a white count of 4.6, hemoglobin of 13.6 and hematocrit of 40.6 and platelets 136. MCV and MCHC are both within normal limits. He had a total bilirubin of 0.4, AST of 33, ALT of 22 and a mildly elevated alkaline phosphatase of 128. Labs completed yesterday 08/26/2018 revealed normal chemistry panel with a nonfasting glucose 119 and a negative tox screen for Tylenol or alcohol. The ER provider had contacted General surgery yesterday who deemed the patient not have a surgical issue. The patient is admitted today for gastric ulcer, worsening pain and reports of melena. Patient History Medical History (Updated 08/27/18 @ 20:39 by JOSE George) Dyspepsia (Acute) Osteoarthritis of both knees (Acute) High cholesterol (Acute) Surgical History (Updated 08/27/18 @ 19:40 by Darrell Rivas DO) H/O exploratory laparotomy (Acute) History of appendectomy (Acute) History of cholecystectomy (Acute) Hx of tonsillectomy (Acute) Family History (Updated 08/27/18 @ 21:07 by JOSE George) Father Head trauma Stroke Mother In good health Grandmother Cancer Sister Cancer Social History household members: significant other Smoking Status: Current every day smoker alcohol intake: former Family & Social History Family History (Updated 08/27/18 @ 21:07 by JOSE George) Father Head trauma Stroke Mother In good health Grandmother Cancer Sister Cancer Social History: household members significant other Prior Living Arrangements House Safety & Behavioral: Feels Safe in Current Yes Environment Been Physically Hurt or No Threatened By a Person Suicidal Ideation Description None Suicide Plan Description No Plan Tobacco & Substance use: Tobacco type cigarettes Smoking Status Current every day smoker Smoking packs per day 0.5 alcohol intake former alcohol intake frequency holiday/special occasion Substance Use Type does not use,methamphetamine Comment: The patient lives in a single family home with significant other Joann Glass). The patient's father sustained head trauma and is unknown if his stroke was elated to the initial trauma. His mother Is good health however her mother had liver cancer and he has a sister has ovarian cancer that has metastasized to the liver. 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 Alcohol: Patient no longer consumes alcohol having quit in February 2018. Substance use: The patient denies recreation pharmaceuticals, herbal or cannabis products. Advanced directives: In direct discussion with the patient he wishes to be FULL CODE. He does in its Joann his significant other to be his surrogate decision maker. Meds Home Medications Medication Instructions Recorded Confirmed Type PNV cmb#95-ferrous fumarate-FA 1 tab PO DAILY 08/27/18 08/27/18 History [] famotidine [Pepcid AC] 20 mg PO DAILY 08/27/18 08/27/18 History Allergies Allergy/AdvReac Type Severity Reaction Status Date / Time No Known Allergies Allergy Verified 08/21/17 05:04 Review of Systems Review of Systems All systems reviewed & are unremarkable except as noted in HPI and below Exam Vital Signs (past 8 hours): - 08/27/18 18:11 08/27/18 19:48 Temperature 97.9 F Pulse Rate 79 68 Respiratory Rate 22 14 Blood Pressure 187/95 H 149/84 H Pulse Oximetry 97 98 Oxygen Delivery Method Room Air Narrative Exam Narrative: GENERAL APPEARANCE: well developed, overweight male in no acute distress. HEAD: Normocephalic, atraumatic, no scalp lesions. EYES: pupils equal, round, reactive to light and accommodation, sclera non-icteric, extraocular movement intact without nystagmus. EARS: normal external structures, no ear pain NOSE: sinuses non tender to percussion, no rhinorrhea ORAL CAVITY: mucosa moist without lesions or exudate, palate normal, tongue in midline. THROAT: normal, no erythema, no exudate, pharynx normal, uvula midline. NECK/THYROID: neck supple, no jugular venous distention, no carotid bruit, no thyromegaly, trachea midline. LYMPH NODES: no cervical or supraclavicular lymphadenopathy. SKIN: warm and dry, no suspicious lesions, no rashes, good turgor. HEART: regular rate and rhythm, S1-S2 without murmur, no rubs or gallops, brisk capillary refill, no edema LUNGS: clear to auscultation bilaterally, no coarseness crackles or wheezing, no cough present CHEST: Symmetrical movement, no accessory muscle use, no pain to AP and lateral compression. ABDOMEN: Soft, no distention, epigastric pain palpation, no lower abdominal pain on exam, no guarding or peritoneal signs, no organomegaly, no flank or suprapubic tenderness, active bowel tones. BACK: Normal curvature, nontender to palpation, no CVA tenderness on percussion EXTREMITIES: moves all extremities, strength is 5/5 and symmetrical, well perfused. NEUROLOGIC: AAO x4, cranial nerves II-XII grossly intact , motor strength normal upper and lower extremities, sensory exam intact to light touch, hearing grossly normal to speech. PSYCH: alert, cognitive function intact, good eye contact, stable mood with congruent affect Objective Labs Result Diagrams: 08/27/18 18:40 08/27/18 18:46 Labs: Laboratory Results - last 24 hr 08/27/18 08/27/18 08/27/18 18:40 18:40 19:08 WBC 4.6 RBC 4.82 Hgb 13.6 Hct 40.6 L MCV 84.2 MCH 28.2 MCHC 33.5 RDW 13.7 Plt Count 136 L Neut % (Auto) 62.7 Lymph % (Auto) 29.1 [place] % (Auto) 3.0 Eos % (Auto) 4.6 H Baso % (Auto) 0.6 Neut # (Auto) 2900 Lymph # (Auto) 1300 [place] # (Auto) 100 Eos # (Auto) 200 Baso # (Auto) 0 Lactate 1.6 Total Bilirubin 0.4 Conjugated Bilirubin 0.0 Unconjugated Bilirubin 0.1 AST 33 ALT 22 Alkaline Phosphatase 128 H Total Protein 7.8 Albumin 4.0 Globulin 3.8 Albumin/Globulin Ratio 1.1 Lipase 58 Assessment & Plan Assessment & Plan narrative: The patient returns to the hospital with worsening abdominal pain since yesterday. He is admitted for gastric ulcer with evidence of GI bleeding in the form of melena with a stable hemoglobin and hematocrit. 1. Acute epigastric abdominal pain, present on arrival. -epigastric abdominal pain increasing over 3-4 days, aching and burning with associated pressure and nausea but no vomiting. -patient seen in the ER yesterday for same complaint, left Against Medical Advice -minimal improvement in pain with morphine in the emergency department, Dilaudid 0.5-1 mg every 6 hours as needed for pain. -patient is NPO -IV normal saline 100 cc/hour. 2. Acute gastric ulcer, present on arrival. -epigastric pain unrelieved with long-term use of Pepcid AC, patient did not get esomeprazole prescription filled that was prescribed yesterday. -CT scan 08/26/2018 findings gastric erosion, pyloric edema and probable gastric outlet obstruction. -abdominal film obtained today finds no free air or indication of perforation. -pantoprazole infusion at 8 milligrams/hour. -Carafate 1 g orally every 6 hours. 3. Acute upper gastrointestinal bleeding, active -patient reports melanotic stool with foul smell and dark color for several days but none today. -hemoglobin is 13.6 with mildly low hematocrit at 40.6 and low platelets of 136. -will follow blood counts. 4. Elevated blood pressure without diagnosis of hypertension, active -markedly elevated blood pressure 187/95 upon arrival in the ER today. -blood pressure is likely related to pain response, will trend blood pressures and evaluate possible need for antihypertensive. 5. Current daily smoker, active -discussed smoking and relation to stomach acid production -discussion on smoking cessation more than 3 minutes less than 10 minutes. -patient has been attempting to cut down. The patient is admitted to the hospital due to the severity of symptoms, risk complications and adverse events. The patient is admitted as an inpatient with expected length of stay to be greater than 2 midnights. Scores GCS Martha coma scale eye opening: Spontaneous Martha coma scale verbal response: Orientated Martha coma scale motor response: Obey commands [place] coma scale total score: 15 Quality VTE Deep Vein Thrombosis/Pulmonary Embolism Present on Admission: No
[2018-08-27] MEDS: SODIUM CHLORIDE 0.9% 1,000 ML 100 ML IV (21:22)
[2018-08-27] MEDS: SUCRALFATE 1 GM/10 ML ORAL SUSP PO (21:37)
[2018-08-27 23:17] VITALS: BP 159/100; PULSE 66; RESP 20; TEMP 36.5; O2SAT 94
[2018-08-28] VITALS (7 sets, daily range): BP systolic 127–156; BP diastolic 84–95; PULSE 66–102; RESP 16–20; TEMP 36.5–37.6; O2SAT 96–98
[2018-08-28] MEDS: SUCRALFATE 1 GM/10 ML ORAL SUSP PO ×2 (00:15→05:19)
[2018-08-28 05:43] LABS: Add Manual Diff / Slide Review NO; Basophils Absolute Auto 0 /uL (0-100); Basophils Percent Auto 0.4 % (0-2); Eosinophils Absolute Auto 100 /uL (0-450); Eosinophils Percent Auto 2.4 % (2-4); Hematocrit 38.2 % (41-53); Hemoglobin 12.8 g/dL (13.5-17.5); Lymphocytes Absolute Auto 1200 /uL (1100-4500); Lymphocytes Percent Auto 25.8 % (25-40); Mean Corpuscular HGB Conc 33.4 % (30-36); Mean Corpuscular Volume 83.7 fL (80-100); Monocytes Absolute Auto 400 /uL (0-900); Neutrophils Absolute Auto 2900 /uL (1500-7000); Neutrophils Percent Auto 62.4 % (50-75); Platelet Count 124 X10^3/uL (150-400); Red Blood Cell Count 4.57 X10^6/uL (4.5-5.9); Red Cell Distribution Width 13.6 % (11.6-14.8); White Blood Cell Count 4.6 X10^3/uL (4.5-11.0)
[2018-08-28 05:49] LABS: Alanine Aminotransferase 45 IU/L (21-72); Albumin 3.6 g/dL (3.5-5.0); Alkaline Phosphatase 142 U/L (38-126); Aspartate Aminotransferase 78 IU/L (17-59); Bilirubin Total 0.5 mg/dL (0.2-1.3); Blood Urea Nitrogen 8 mg/dL (9-20); Calcium 8.9 mg/dL (8.4-10.2); Carbon Dioxide 28 mmol/L (22-32); Chloride 101 mmol/L (98-107); Estimated Glomerular Filt Rate > 60.0 mL/min (>60); Globulin 3.5 g/dL (1.7-4.1); Glucose 120 mg/dL (70-100); HEMOLYSIS < 15 (0-50); Potassium 3.9 mmol/L (3.4-5.1); Sodium 135 mmol/L (137-145); Total Protein 7.1 g/dL (6.3-8.2)
[2018-08-28] MEDS: SODIUM CHLORIDE 0.9% 1,000 ML 100 ML IV (06:38)
[2018-08-28] MEDS: PANTOPRAZOLE 80 MG in SODIUM CHLORIDE 0.9% 100 ML 10 ML IV (08:27)
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
--- NOTE | 2018-08-28 11:14 | PM.CN ---
History of Present Illness Date Patient Seen: 08/28/18 Time Patient Seen: 11:15 Chief complaint: Ulcer to be admitted Reason for consult: Peptic ulcer disease [facility] Medical History Dyspepsia (Acute) Osteoarthritis of both knees (Acute) High cholesterol (Acute) Surgical History H/O exploratory laparotomy (Acute) History of appendectomy (Acute) History of cholecystectomy (Acute) Hx of tonsillectomy (Acute) Family History (Updated 08/27/18 @ 21:07 by JOSE George) Father Head trauma Stroke Mother In good health Grandmother Cancer Sister Cancer Social History household members: significant other Smoking Status: Current every day smoker alcohol intake: former Family History Father Head trauma Stroke Mother In good health Grandmother Cancer Sister Cancer Social History household members: significant other Smoking Status: Current every day smoker alcohol intake: former Meds Home Medications Medication Instructions Recorded Confirmed Type PNV cmb#95-ferrous fumarate-FA 1 tab PO DAILY 08/27/18 08/27/18 History [] famotidine [Pepcid AC] 20 mg PO DAILY 08/27/18 08/27/18 History Allergies Allergy/AdvReac Type Severity Reaction Status Date / Time No Known Allergies Allergy Verified 08/21/17 05:04 Review of Systems Review of Systems All systems reviewed & are unremarkable except as noted in HPI and below Exam Vital Signs (past 8 hours): - 08/28/18 06:13 08/28/18 07:15 08/28/18 09:38 Temperature 97.8 F 99.3 F Pulse Rate 72 66 Respiratory Rate 20 16 Blood Pressure 155/84 H 127/95 H Pulse Oximetry 96 98 98 Oxygen Delivery Method Room Air Narrative Exam Narrative: Patient is alert and oriented and is pain free. He is resting comfortably in bed. He is not vomiting. Abdomen is tender in the mid epigastrium but no masses are palpated. He has no parietal peritoneal signs. Objective Labs Result Diagrams: 08/28/18 05:10 08/28/18 05:10 Labs: Laboratory Results - last 24 hr 08/27/18 08/27/18 08/27/18 18:40 18:40 18:46 WBC 4.6 RBC 4.82 Hgb 13.6 Hct 40.6 L MCV 84.2 MCH 28.2 MCHC 33.5 RDW 13.7 Plt Count 136 L Neut % (Auto) 62.7 Lymph % (Auto) 29.1 [place] % (Auto) 3.0 Eos % (Auto) 4.6 H Baso % (Auto) 0.6 Neut # (Auto) 2900 Lymph # (Auto) 1300 [place] # (Auto) 100 Eos # (Auto) 200 Baso # (Auto) 0 Sodium 139 Potassium 4.1 Chloride 103 Carbon Dioxide 28 BUN 10 Creatinine 0.80 Estimated GFR > 60.0 BUN/Creatinine Ratio 12.5 Glucose 108 H Lactate Calcium 9.4 Total Bilirubin 0.4 Conjugated Bilirubin 0.0 Unconjugated Bilirubin 0.1 AST 33 ALT 22 Alkaline Phosphatase 128 H Total Protein 7.8 Albumin 4.0 Globulin 3.8 Albumin/Globulin Ratio 1.1 Lipase 58 08/27/18 08/28/18 08/28/18 19:08 05:10 05:10 WBC 4.6 RBC 4.57 Hgb 12.8 L Hct 38.2 L MCV 83.7 MCH 28.0 MCHC 33.4 RDW 13.6 Plt Count 124 L Neut % (Auto) 62.4 Lymph % (Auto) 25.8 [place] % (Auto) 9.0 Eos % (Auto) 2.4 Baso % (Auto) 0.4 Neut # (Auto) 2900 Lymph # (Auto) 1200 [place] # (Auto) 400 Eos # (Auto) 100 Baso # (Auto) 0 Sodium 135 L Potassium 3.9 Chloride 101 Carbon Dioxide 28 BUN 8 L Creatinine 0.80 Estimated GFR > 60.0 BUN/Creatinine Ratio 10.0 Glucose 120 H Lactate 1.6 Calcium 8.9 Total Bilirubin 0.5 Conjugated Bilirubin Unconjugated Bilirubin AST 78 H ALT 45 Alkaline Phosphatase 142 H Total Protein 7.1 Albumin 3.6 Globulin 3.5 Albumin/Globulin Ratio 1.0 Lipase Assessment & Plan Assessment & Plan narrative: Patient has CT scan which shows pyloric edema and a probable pyloric channel ulcer with relative gastric outlet obstruction from the edema. He has no history of ulcer disease. He is not vomiting. His hemoglobin has been stable between 13 and 12. White count is normal. Patient has been on a Protonix drip since admission yesterday. He says that his pain is improving and is now pain-free. I will allow the patient tried to drink some ice water. In the next several days patient should have an EGD to confirm the diagnosis and signs of healing. I would prefer to wait for the EGD because his relative obstruction at the pylorus will likely preclude an evaluation of the duodenum. This should improve in a matter of days.
--- NOTE | 2018-08-28 11:18 | P.CONS_ITS ---
History of Present Illness Date Patient Seen: 08/28/18 Time Patient Seen: 11:15 Chief complaint: Ulcer to be admitted Reason for consult: Peptic ulcer disease [facility] Medical History Dyspepsia (Acute) Osteoarthritis of both knees (Acute) High cholesterol (Acute) Surgical History H/O exploratory laparotomy (Acute) History of appendectomy (Acute) History of cholecystectomy (Acute) Hx of tonsillectomy (Acute) Family History (Updated 08/27/18 @ 21:07 by JOSE George) Father Head trauma Stroke Mother In good health Grandmother Cancer Sister Cancer Social History household members: significant other Smoking Status: Current every day smoker alcohol intake: former Family History Father Head trauma Stroke Mother In good health Grandmother Cancer Sister Cancer Social History household members: significant other Smoking Status: Current every day smoker alcohol intake: former Meds Home Medications Medication Instructions Recorded Confirmed Type PNV cmb#95-ferrous fumarate-FA 1 tab PO DAILY 08/27/18 08/27/18 History [] famotidine [Pepcid AC] 20 mg PO DAILY 08/27/18 08/27/18 History Allergies Allergy/AdvReac Type Severity Reaction Status Date / Time No Known Allergies Allergy Verified 08/21/17 05:04 Review of Systems Review of Systems All systems reviewed & are unremarkable except as noted in HPI and below Exam Vital Signs (past 8 hours): - 08/28/18 06:13 08/28/18 07:15 08/28/18 09:38 Temperature 97.8 F 99.3 F Pulse Rate 72 66 Respiratory Rate 20 16 Blood Pressure 155/84 H 127/95 H Pulse Oximetry 96 98 98 Oxygen Delivery Method Room Air Narrative Exam Narrative: Patient is alert and oriented and is pain free. He is resting comfortably in bed. He is not vomiting. Abdomen is tender in the mid epigastrium but no masses are palpated. He has no parietal peritoneal signs. Objective Labs Result Diagrams: 08/28/18 05:10 08/28/18 05:10 Labs: Laboratory Results - last 24 hr 08/27/18 08/27/18 08/27/18 18:40 18:40 18:46 WBC 4.6 RBC 4.82 Hgb 13.6 Hct 40.6 L MCV 84.2 MCH 28.2 MCHC 33.5 RDW 13.7 Plt Count 136 L Neut % (Auto) 62.7 Lymph % (Auto) 29.1 [place] % (Auto) 3.0 Eos % (Auto) 4.6 H Baso % (Auto) 0.6 Neut # (Auto) 2900 Lymph # (Auto) 1300 [place] # (Auto) 100 Eos # (Auto) 200 Baso # (Auto) 0 Sodium 139 Potassium 4.1 Chloride 103 Carbon Dioxide 28 BUN 10 Creatinine 0.80 Estimated GFR > 60.0 BUN/Creatinine Ratio 12.5 Glucose 108 H Lactate Calcium 9.4 Total Bilirubin 0.4 Conjugated Bilirubin 0.0 Unconjugated Bilirubin 0.1 AST 33 ALT 22 Alkaline Phosphatase 128 H Total Protein 7.8 Albumin 4.0 Globulin 3.8 Albumin/Globulin Ratio 1.1 Lipase 58 08/27/18 08/28/18 08/28/18 19:08 05:10 05:10 WBC 4.6 RBC 4.57 Hgb 12.8 L Hct 38.2 L MCV 83.7 MCH 28.0 MCHC 33.4 RDW 13.6 Plt Count 124 L Neut % (Auto) 62.4 Lymph % (Auto) 25.8 [place] % (Auto) 9.0 Eos % (Auto) 2.4 Baso % (Auto) 0.4 Neut # (Auto) 2900 Lymph # (Auto) 1200 [place] # (Auto) 400 Eos # (Auto) 100 Baso # (Auto) 0 Sodium 135 L Potassium 3.9 Chloride 101 Carbon Dioxide 28 BUN 8 L Creatinine 0.80 Estimated GFR > 60.0 BUN/Creatinine Ratio 10.0 Glucose 120 H Lactate 1.6 Calcium 8.9 Total Bilirubin 0.5 Conjugated Bilirubin Unconjugated Bilirubin AST 78 H ALT 45 Alkaline Phosphatase 142 H Total Protein 7.1 Albumin 3.6 Globulin 3.5 Albumin/Globulin Ratio 1.0 Lipase Assessment & Plan Assessment & Plan narrative: Patient has CT scan which shows pyloric edema and a probable pyloric channel ulcer with relative gastric outlet obstruction from the edema. He has no history of ulcer disease. He is not vomiting. His hemoglobin has been stable between 13 and 12. White count is normal. Patient has been on a Protonix drip since admission yesterday. He says that his pain is improving and is now pain-free. I will allow the patient tried to drink some ice water. In the next several days patient should have an EGD to confirm the diagnosis and signs of healing. I would prefer to wait for the EGD because his relative obstruction at the pylorus will likely preclude an evaluation of the duodenum. This should improve in a matter of days.
--- NOTE | 2018-08-28 11:40 | CM.DANOTE ---
Addendum entered by Zahra Ruelas LPN 08/29/18 08:14: Followed up on this case this morning. Note that pt left AMA after tox screen revealed + methamphetamines. Pt planned to go back to [facility]. Original Note: Discharge Planning/Care Management DCP: assessment: case received, discussed in Team Rounds with Dr. Carrera and then met with pt and his fiancee JRolando (Joann Fregoso). Introduced self and role. Pt is found lying in bed in dark, watching tv. Pt defers some of the questions to JJ, who answers but looks only at her phone and the tv while doing so). Pt is a 48 year old male who admitted last night to care of the hospitalist team. His last admission to was in August 2017. He was in [facility] in February for severe sepsis and liver failure and states he did stop using alcohol at that point. Pt denies any current drug use. He does admit to hx of methampetamines but says he stopped this 2 or 3 years ago. Pt appears very cautious with his answers to this topic and looks often to VAN to reinforce his answers. Payer: [facility] Medicaid PCP: NO ONE at present. Pt states he plans to establish at a clinic soon. Pt does say the address in [place] on his demographic/face sheet is a mailing address. He and VAN are staying in [place] with friends. They do not wish to provide this address. Dr. Carrera had noted in Team Rounds that pt had a penetrating ulcer, that surgeon Dr. Allen had been consulted and the plan was for pt to be in the hospital for several days until he was medically stable for an EGD. Dr. Carrera noted pt has a hx of leaving AMA. He also confirmed that a tox screen (expect for tylenol and alcohol) was not done on admission. He is ordering one today. Pt at this point says he understands the importance of remaining in the hospital for treatment. P: follow for d/c planning issues and options as POC unfolds. Pt may benefit from a CM/NEWS ANCHOR consult as more is known for a CD assessment/resources as more is known....will be discussing in Team Rounds. CM Discharge Assessment Start: 08/28/18 11:38 Freq: Status: Active Protocol: Document 08/28/18 11:38 ITV (Rec: 08/28/18 11:40 ITV [id number]) Discharge Planning Assessment Advance Directives? No Advance Directives on File No History Provided By Patient Significant Other Medical Record Has Patient been admitted in last 30 No days? Prior Living Arrangements House Household Members significant other Independent with ADL's Yes Is patient alert and oriented? Yes Whiteboard Updated in Patient Room with Yes name and ext. 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
[2018-08-28] MEDS: HYDROMORPHONE 1 MG INJ IV (12:17)
[2018-08-28 12:31] LABS: Urine Amphetamines Positive (Negative); Urine Cocaine Negative (Negative); Urine Methamphetamines Positive (Negative); Urine Morphine/Opi cutoff 2000 Positive (Negative); Urine Tetrahydrocannabinol Negative (Negative)
[2018-08-28 12:32] LABS: Urine Barbiturates Negative (Negative); Urine Benzodiazepines Negative (Negative); Urine MDMA Negative (Negative); Urine Methadone Negative (Negative); Urine Oxycodone Negative (Negative); Urine Phencyclidine Negative (Negative); Urine Tricyclic Antidepressant Negative (Negative)
--- NOTE | 2018-08-28 15:23 | PM.DS.1 ---
History of Present Illness Date Patient Seen: 08/28/18 Time Patient Seen: 15:23 Chief complaint: Ulcer to be admitted Narrative: Mr. Etienne Ramos is a 48-year-old male patient with a past medical history of hospitalization for severe sepsis and liver failure in February for which he has recovered and symptoms of gastroesophageal reflux disorder presents today for worsening abdominal pain. The patient was seen in the emergency department yesterday on 08/26/2018 with epigastric pain with findings on CT scan of prominently dilated stomach edematous gastric mucosa with penetrating gastric erosion and concern for gastric outlet obstruction. The patient complains epigastric fullness with heartburn and pressure since his hospitalization in February and has been taking Pepcid AC daily. In February he stopped drinking and he also relates a history of bilateral knee osteoarthritis described is bone on bone but denies use of Tylenol or nonsteroidal anti-inflammatory medications. 3-4 days ago the patient had an onset of epigastric pain which she describes as sharp and burning that has been escalating in severity. When seen in the ER yesterday he left the ER against medical advice and was prescribed Nexium which he never picked up. Returns today with worsening pain which he describes as an 8/10 that has been associated with nausea but no vomiting. He reports eating breakfast and lunch today without regurgitation. He denies radiation of the pain and associated fevers or chills, lightheadedness or dizziness. He denies chest pain or palpitations, shortness of breath cough or wheezing. He is a current smoker approximately 1/2 pack per day. He denies diarrhea constipation but does report passing foul-smelling dark stools. Upon arrival in the ER the patient is afebrile with a temperature of 97.9?, heart rate of 79, hypertensive at 187/95, respirations of 22 and saturating 97% on room air. He underwent abdominal CT yesterday with the findings as described above and had an abdominal x-ray repeated today with no findings of free air. On labs today he had a white count of 4.6, hemoglobin of 13.6 and hematocrit of 40.6 and platelets 136. MCV and MCHC are both within normal limits. He had a total bilirubin of 0.4, AST of 33, ALT of 22 and a mildly elevated alkaline phosphatase of 128. Labs completed yesterday 08/26/2018 revealed normal chemistry panel with a nonfasting glucose 119 and a negative tox screen for Tylenol or alcohol. The ER provider had contacted General surgery yesterday who deemed the patient not have a surgical issue. The patient is admitted today for gastric ulcer, worsening pain and reports of melena. Discharge Providers Date of admission: 08/27/18 19:31 Discharge Date: 08/28/18 Consults: 08/27/18 20:22 Consult to Dietitian, Adult Routine Comment: Reason For Exam: Gastric ulcer, upper GI bleed, overweight Consult to Discharge Planning Routine Comment: 08/27/18 20:24 Consult to General Surgery Routine Comment: Consulting Provider: Anastacio Moreno Reason for consultation: Gastric ulcer, gastric outlet obstruction, melena Has provider been notified: Yes Discharge provider: Nettie Carrera MD Summary Discharge Diagnosis: 1. Acute epigastric abdominal pain, present on arrival. 2. Acute gastric ulcer, present on arrival. 3. Acute upper gastrointestinal bleeding, active 4. Elevated blood pressure without diagnosis of hypertension, active 5. Current daily smoker, active 6. Current Methamphetamine User Hospital Course: 1. Acute epigastric abdominal pain, present on arrival. -epigastric abdominal pain increasing over 3-4 days, aching and burning with associated pressure and nausea but no vomiting. -patient seen in the ER one day before admission for same complaint, left Against Medical Advice -minimal improvement in pain with morphine in the emergency department, Dilaudid 0.5-1 mg every 6 hours as needed for pain. -at 3:00 p.m. today he announced that he was leaving the hospital. He explained to me that none of his friends will visit him over here in [place] because it is too far away from where they live on [address]. He plans to admit himself to [facility]. 2. Acute gastric ulcer, present on arrival. -epigastric pain unrelieved with long-term use of Pepcid AC, patient did not get esomeprazole prescription filled that was prescribed at his first ED visit. -CT scan 08/26/2018 findings gastric erosion, pyloric edema and probable gastric outlet obstruction. -abdominal film obtained today finds no free air or indication of perforation. -pantoprazole infusion at 8 milligrams/hour. -Carafate 1 g orally every 6 hours. -Dr. Moreno consulted and was planning an EGD at an appropriate interval. -He suddenly left AMA this afternoon before any follow up or treatment plans could be organized. -he was packed up, in street clothes and following his girlfriend down the hallway by the time I saw him, 15 minutes after notifying his nurse of his plans. 3. Acute upper gastrointestinal bleeding, active -patient reports melanotic stool with foul smell and dark color for several days but none since admission. -hemoglobin is 12.8 today 4. Elevated blood pressure without diagnosis of hypertension, active 5. Current daily smoker, active -discussed smoking and relation to stomach acid production -discussion on smoking cessation more than 3 minutes less than 10 minutes. -patient has been attempting to cut down. 6. Methamphetamine Use -Confirmed on Drug Screen today Status at Discharge Cognitive/behavioral status at discharge: oriented Functional status at discharge: independent ambulation Overall status at discharge: patient is not back to baseline Exam Vital Signs (past 8 hours): - 08/28/18 09:38 08/28/18 12:05 08/28/18 14:20 Temperature 97.7 F 99.7 F H Pulse Rate 102 H Respiratory Rate 20 Blood Pressure 156/93 H Pulse Oximetry 98 98 Oxygen Delivery Method Room Air Narrative Exam Narrative: Alert and oriented x3. No apparent distress. His significant other is asleep in the chair beside his bed. She appears as a cypher and does not engage or participate. Heart is regular rate and rhythm without murmur. Lungs are clear to auscultation bilaterally. Abdomen is tender in the epigastric area, bowel sounds are positive, there is no organomegaly, the abdomen is soft. Objective Labs Result Diagrams: 08/28/18 05:10 08/28/18 05:10 Labs: Laboratory Results - last 24 hr 08/27/18 08/27/18 08/27/18 18:40 18:40 18:46 WBC 4.6 RBC 4.82 Hgb 13.6 Hct 40.6 L MCV 84.2 MCH 28.2 MCHC 33.5 RDW 13.7 Plt Count 136 L Neut % (Auto) 62.7 Lymph % (Auto) 29.1 Mclean % (Auto) 3.0 Eos % (Auto) 4.6 H Baso % (Auto) 0.6 Neut # (Auto) 2900 Lymph # (Auto) 1300 Mclean # (Auto) 100 Eos # (Auto) 200 Baso # (Auto) 0 Sodium 139 Potassium 4.1 Chloride 103 Carbon Dioxide 28 BUN 10 Creatinine 0.80 Estimated GFR > 60.0 BUN/Creatinine Ratio 12.5 Glucose 108 H Lactate Calcium 9.4 Total Bilirubin 0.4 Conjugated Bilirubin 0.0 Unconjugated Bilirubin 0.1 AST 33 ALT 22 Alkaline Phosphatase 128 H Total Protein 7.8 Albumin 4.0 Globulin 3.8 Albumin/Globulin Ratio 1.1 Lipase 58 Urine Opiates Screen Ur Oxycodone Screen Urine Methadone Screen Ur Barbiturates Screen U Tricyclic Antidepress Ur Phencyclidine Scrn Ur Amphetamines Screen U Methamphetamines Scrn Ur MDMA Scrn (Ecstasy) U Benzodiazepines Scrn Urine Cocaine Screen U Marijuana (THC) Screen 08/27/18 08/28/18 08/28/18 19:08 05:10 05:10 WBC 4.6 RBC 4.57 Hgb 12.8 L Hct 38.2 L MCV 83.7 MCH 28.0 MCHC 33.4 RDW 13.6 Plt Count 124 L Neut % (Auto) 62.4 Lymph % (Auto) 25.8 Mclean % (Auto) 9.0 Eos % (Auto) 2.4 Baso % (Auto) 0.4 Neut # (Auto) 2900 Lymph # (Auto) 1200 Mclean # (Auto) 400 Eos # (Auto) 100 Baso # (Auto) 0 Sodium 135 L Potassium 3.9 Chloride 101 Carbon Dioxide 28 BUN 8 L Creatinine 0.80 Estimated GFR > 60.0 BUN/Creatinine Ratio 10.0 Glucose 120 H Lactate 1.6 Calcium 8.9 Total Bilirubin 0.5 Conjugated Bilirubin Unconjugated Bilirubin AST 78 H ALT 45 Alkaline Phosphatase 142 H Total Protein 7.1 Albumin 3.6 Globulin 3.5 Albumin/Globulin Ratio 1.0 Lipase Urine Opiates Screen Ur Oxycodone Screen Urine Methadone Screen Ur Barbiturates Screen U Tricyclic Antidepress Ur Phencyclidine Scrn Ur Amphetamines Screen U Methamphetamines Scrn Ur MDMA Scrn (Ecstasy) U Benzodiazepines Scrn Urine Cocaine Screen U Marijuana (THC) Screen 08/28/18 12:20 WBC RBC Hgb Hct MCV MCH MCHC RDW Plt Count Neut % (Auto) Lymph % (Auto) Mclean % (Auto) Eos % (Auto) Baso % (Auto) Neut # (Auto) Lymph # (Auto) Mclean # (Auto) Eos # (Auto) Baso # (Auto) Sodium Potassium Chloride Carbon Dioxide BUN Creatinine Estimated GFR BUN/Creatinine Ratio Glucose Lactate Calcium Total Bilirubin Conjugated Bilirubin Unconjugated Bilirubin AST ALT Alkaline Phosphatase Total Protein Albumin Globulin Albumin/Globulin Ratio Lipase Urine Opiates Screen Positive H Ur Oxycodone Screen Negative Urine Methadone Screen Negative Ur Barbiturates Screen Negative U Tricyclic Antidepress Negative Ur Phencyclidine Scrn Negative Ur Amphetamines Screen Positive H U Methamphetamines Scrn Positive H Ur MDMA Scrn (Ecstasy) Negative U Benzodiazepines Scrn Negative Urine Cocaine Screen Negative U Marijuana (THC) Screen Negative Discharge Plan Discharge Plan Discharge Problem: Gastric ulcer Patient Disposition: Home Discharge comment: He left AMA with apparent plans to admit himself to [facility] for treatment/testing. Discharge Med Rec/Prescriptions Prescriptions: Continued PNV cmb#95-ferrous fumarate-FA [] 28 mg iron- 800 mcg Tablet 1 tab PO DAILY RF: 0 famotidine [Pepcid AC] 10 mg Tablet 20 mg PO DAILY RF: 0 Visit Report/Discharge Packet Visit Report Forms: Stroke Signs & Symptoms Discharge Data Attending Provider: Eric Doss Admit Date/Time: 08/27/18 19:31 Quality VTE Deep Vein Thrombosis/Pulmonary Embolism Present on Admission: No
--- NOTE | 2018-08-28 15:28 | PC.NURSE ---
AMA discharge alerted by DIRECTOR ENTERPRISE SALES at 1510 that pt wanted to leave and have IV removed. Attempted to get vesna of and did to inform him of pt's wishes. Pt called again at 1520 to state he was leaving, informed me that he could remove IV himself if I didn't do it, so I removed his IV. AMA paperwork was obtained and filled out. Explained to pt the risks of him leaving including worsening pain, bleeding from ulcer and if it were to rupture. Pt and girlfriend still chose to leave hospital. Dr Carrera arrived as pt was leaving, pt informed him that he was going to go to [facility], pt stated it's too far here, my friends won't come here. AMA paperwork placed in chart. Pt walked out with girlfriend to await his ride.
== END 2018-08-28 15:20 | disposition left against medical advice (07) | DRG 241 ==
LOC: ED 18:26 → AC 08-28 08:33
PROVIDERS: Family Medicine; Admitting Provider Nurse Practitioner Adult Health; Emergency Provider Emergency Medicine; Visit Provider Nurse Practitioner Adult Health
DX: K25.0 Acute gastric ulcer with hemorrhage (principal); F17.210 Nicotine dependence, cigarettes, uncomplicated; R03.0 Elevated blood-pressure reading, without diagnosis of hypertension; F15.90 Other stimulant use, unspecified, uncomplicated
CPT/HCPCS: 36415; 36591; 74018; 74177; 80048; 80053; 80076; 80305; 80320; 80329; 81003; 83605; 83690; 85025; 85610; 85730; 93005; 96361; 96365; 96374; 96375; 99231; 99282; 99284; 99285; G0378; C9113; G0480; J1170; J2270; Q9967

== ENCOUNTER 2021-04-02 00:11 | Emergency (ER) | payer OTHER, MEDICAID, SELFPAY ==
[2021-04-02 00:21] VITALS: BP 221/105; PULSE 78; RESP 17; TEMP 36.6; O2SAT 99; BMI 36.8
--- NOTE | 2021-04-02 00:55 | ED_ITS ---
HPI - Extremity Problem General Chief complaint: Extremity Problem,Nontraumatic Stated complaint: right leg/cellulitis x7 days Time Seen by Provider: 04/02/21 00:22 Source: patient and family Mode of arrival: Ambulatory History of Present Illness HPI Narrative: Patient is a 50-year-old male who comes to the emergency department for concerns of a right lower leg infection. The symptoms have been going on for approximately the last week. He has been seen at 3 different facilities for this. He was initially seen at a facility about 10 days ago. Was given a dose of IV antibiotics and sent home on Keflex. Has been taking this medication. Subsequently he was seen at another facility. Was of initially recommended that he be admitted to the hospital for continued IV antibiotics but he stated that he left against medical advice. After that visit he went to a 3rd hospital but he states that he was never given any antibiotics and not offered admission and left ?without anything being done ?he comes to the emergency department today for continued infection. He reports swelling and pain and redness and drainage from his right lower extremity. He actually states that the redness has improved over the past 24 hours he is having quite a bit of pain with walking. No fevers. Generally he feels well. He is tolerating his oral antibiotics. Has 1 more day left of these. Related Data Home Medications Medication Instructions Recorded Confirmed famotidine 10 mg tablet (Pepcid AC) 20 mg PO DAILY 08/27/18 08/27/18 vit no.95-ferrous 1 tab PO DAILY 08/27/18 08/27/18 fumarate 28 mg-folic acid 800 mcg tablet () Previous Rx's Medication Instructions Recorded cephalexin 500 mg capsule 500 mg PO QID 7 Days #28 cap 04/02/21 Allergies Allergy/AdvReac Type Severity Reaction Status Date / Time No Known Allergies Allergy Verified 08/21/17 05:04 Review of Systems Constitutional Constitutional: Denies body ache(s), Denies chills, Denies fatigue and Denies fever(s) Cardiovascular Cardiovascular: Denies chest pain and Denies dyspnea Respiratory Respiratory: Denies dyspnea Gastrointestinal Gastrointestinal: Denies abdominal pain Musculoskeletal Musculoskeletal: Reports system reviewed and no additional complaints, except as documented and Reports as per HPI Integumentary/Breasts Skin/Breast: Reports system reviewed and no additional complaints, except as documented and Reports as per HPI Neurologic Neurologic: Reports system reviewed and no additional complaints, except as documented Endocrine Endocrine: Denies fatigue Hematologic/Lymphatic On Anticoagulants: No Patient History Medical History Dyspepsia High cholesterol Osteoarthritis of both knees Surgical History H/O exploratory laparotomy History of appendectomy History of cholecystectomy Hx of tonsillectomy Family History Father Head trauma Stroke Mother In good health Grandmother Cancer Sister Cancer Social History household members: significant other Smoking Status: Current every day smoker alcohol intake: former Smoking Status: Current every day smoker alcohol intake frequency: holidays/special occasions only Substance Use Type: does not use and methamphetamine Exam Initial Vital Signs Initial Vital Signs: Vital Signs Temperature 98 F 04/02/21 00:21 Pulse Rate 78 04/02/21 00:21 Respiratory Rate 17 04/02/21 00:21 Blood Pressure 221/105 H 04/02/21 00:21 Pulse Oximetry 99 04/02/21 00:21 Const General: cooperative and comfortable HENMT Head: normal to inspection and normocephalic Resp Effort & Inspection: normal respiratory effort Cardio Rate: regular rate Pulses: dorsalis pedis present bilaterally Skin Other: Patient has obvious fungal infections of his toenails. His right lower extremity is edematous and erythematous and also swollen. It extends from his toes to his knee. There is a help line on his thigh apparently where the area of erythema was marked. He states this was done at 1 of his prior hospital visits. The erythema does not extend up to this line. It is located mostly distal to his knee and is circumferential. He has a a area on the dorsum of his right foot with a ulceration on the lateral aspect. There is some surrounding blisters to the area. This is where he is having his discomfort. Neuro Sensory Exam: no sensory deficits noted Extrem Other: Patient has circumferential swelling to the right lower extremity. Course Vital Signs Vital signs: Vital Signs - 8 hr 04/02/21 00:21 04/02/21 01:05 Temperature 98 F Pulse Rate 78 Respiratory Rate 17 Blood Pressure 221/105 H 149/79 H Pulse Oximetry 99 MDM - Extremity (Nontraumatic) MDM Narrative Medical decision making narrative: This is his 4th visit for an infection in his right lower extremity which appears to been going on for the past week. He is currently on antibiotics. He is nontoxic appearing. Is not febrile. Is not tachycardic. Is neurovascularly intact. There is a line drawn on his proximal right thigh apparently where the erythema has extended to in the past but it is certainly better than this. The erythema is associated with his distal right lower extremity it is circumferential. It is warm to the touch. He has had a ultrasound of his right lower extremity and he states that there was no sign of any blood clot. He has also had a CT scan of his right lower extremity and they were able to pull up the results of this which showed no signs of osteomyelitis and no deep abscess but findings consistent with cellulitis. He does admit that his symptoms have actually improved over the past 12 hours. He actually feels very good about this. Had a long discussion with him regarding options. I did offer admission to the hospital for IV antibiotics however we did discuss that his symptoms do seem to be improving and continuing on a course of oral antibiotics at home would not be unreasonable as well. He has 1 day left of his Keflex and I do feel that he is going to need a longer course of this. After this discussion the patient states that he was feeling well enough that he would like to be discharged home and return if his symptoms worsen. Informed him that if he returns again he will most likely need admitted to the hospital he did expressed understanding of this. Antibiotics was electronically transmitted to the pharmacy of his choice. He expressed understanding agreement. Discharge Plan Departure Patient Disposition: Home Clinical Impression: Cellulitis Instructions: DI for Cellulitis -- Adult, Essential Hypertension Activity Restrictions/Additional Instructions: After discussion you opted to go home to continue with oral antibiotics. I do not feel this is an unreasonable course of action. Complete the antibiotics magi t you are currently taking and when those are gone start the antibiotics your prescribed this evening. Do keep your leg elevated like we discussed. You can shower like normal. Your blood pressure was elevated today. I recommend that you contact your primary doctor to discuss this. A consult was also placed for wound care here at [facility]. You can contact them at [phone]. Return to the emergency department for any new or worsening symptoms. Prescriptions: New cephalexin 500 mg capsule 500 mg PO QID 7 Days Qty: 28 0RF No Action PNV cmb#95-ferrous fumarate-FA [] 28 mg iron- 800 mcg Tablet 1 tab PO DAILY 0RF famotidine [Pepcid AC] 10 mg Tablet 20 mg PO DAILY 0RF
[2021-04-02 01:05] VITALS: BP 149/79
== END 2021-04-02 01:05 | disposition home or self-care (01) ==
PROVIDERS: Emergency Provider Emergency Medicine
DX: L03.031 Cellulitis of right toe (principal); L03.115 Cellulitis of right lower limb
CPT/HCPCS: 99281

== ENCOUNTER 2023-03-20 02:32 | Emergency (ER) | payer OTHER, MEDICAID, SELFPAY ==
[2023-03-20] VITALS (11 sets, daily range): BP systolic 144–193; BP diastolic 72–91; PULSE 65–81; RESP 13–27; TEMP 36.4; O2SAT 91–100; BMI 35.7
--- NOTE | 2023-03-20 02:37 | DI.RAD.S_ITS ---
PROCEDURE: XR CHEST 1V INDICATIONS: HTN TECHNIQUE: One view of the chest was acquired. COMPARISON: None. FINDINGS: Surgical changes and devices: None. Lungs and pleura: Low lung volumes. No dense consolidation or pleural effusion. Mediastinum: Normal heart size Bones and chest wall: Degenerative changes. IMPRESSION: Low lung volumes on single view radiography. No acute abnormality. Agree with prelim report. Dictated by: Ministerio Baxter M.D. on 03/20/2023 at 9:07 Approved by: Ministerio Baxter M.D. on 03/20/2023 at 9:08
[2023-03-20 02:50] LABS: Add Manual Diff / Slide Review NO; Basophils Absolute Auto 0 /uL (0-100); Basophils Percent Auto 0.6 % (0-2); Eosinophils Absolute Auto 300 /uL (0-450); Eosinophils Percent Auto 4.8 % (2-4); Hematocrit 38.2 % (41-53); Hemoglobin 12.6 g/dL (13.5-17.5); Lymphocytes Absolute Auto 2300 /uL (1100-4500); Lymphocytes Percent Auto 41.1 % (25-40); Mean Corpuscular Hemoglobin 26.9 PG (26-34); Mean Corpuscular Volume 81.6 fL (80-100); Monocytes Absolute Auto 500 /uL (0-900); Monocytes Percent Auto 9.1 % (3-14); Neutrophils Absolute Auto 2500 /uL (1500-7000); Neutrophils Percent Auto 44.4 % (50-75); Platelet Count 196 X10^3/uL (150-400); Red Blood Cell Count 4.68 X10^6/uL (4.5-5.9); Red Cell Distribution Width 14.5 % (11.6-14.8); White Blood Cell Count 5.7 X10^3/uL (4.5-11.0)
--- NOTE | 2023-03-20 02:52 | ED_ITS ---
HPI - General Adult General Chief complaint: Weakness Stated complaint: HTN- generalized weakness Time Seen by Provider: 03/20/23 02:36 Source: patient and EMS Mode of arrival: EMS History of Present Illness HPI narrative: 52-year-old male with a history of hypertension who is here for evaluation of generalized weakness, high blood pressure, body aches, nausea. No vomiting. No urinary symptoms. No belly pain. No headache. No vision changes. No chest pain. No shortness of breath. Symptoms have been going on for over 24 hours. He has not taken any of his medication in several weeks as he states he ran out of the medicines. Blood pressure significant elevated upon EMS arrival with a systolic blood pressure greater than 240. No fevers Related Data Home Medications Medication Instructions Recorded Confirmed famotidine 10 mg tablet (Pepcid AC) 20 mg PO DAILY 08/27/18 08/27/18 vit no.95-ferrous 1 tab PO DAILY 08/27/18 08/27/18 fumarate 28 mg-folic acid 800 mcg tablet () Previous Rx's Medication Instructions Recorded lisinopril 20 mg tablet 20 mg PO DAILY #60 tabs 03/20/23 Allergies Allergy/AdvReac Type Severity Reaction Status Date / Time No Known Allergies Allergy Verified 08/21/17 05:04 Review of Systems Review of Systems ROS Unobtainable: All systems reviewed & are unremarkable except as noted in HPI and below Patient History Medical History Dyspepsia Osteoarthritis of both knees High cholesterol Surgical History H/O exploratory laparotomy Hx of tonsillectomy History of appendectomy History of cholecystectomy Family History Father Head trauma Stroke Mother In good health Grandmother Cancer Sister Cancer Social History household members: significant other Smoking Status: Current every day smoker alcohol intake: former Smoking Status: Current every day smoker alcohol intake frequency: other Substance Use Type: does not use Exam Initial Vital Signs Initial Vital Signs: Vital Signs Pulse Oximetry 91 03/20/23 02:34 HENMT Head: normal to inspection and normocephalic Resp Effort & Inspection: normal respiratory effort Auscultation: clear to auscultation bilaterally Cardio Rate: regular rate Rhythm: regular rhythm GI Inspection: normal to inspection Neuro General: patient alert, patient awake and moves all extremities Extrem General: normal to inspection Course Orders Ordered: ED Orders 03/20/23 02:34 Complete Blood Count AUTO DIFF Stat Comprehensive Metabolic Panel Stat Lipase Stat Troponin & CK Cardiac Panel Stat 03/20/23 02:37 XR chest 1V Stat EKG-12 Lead Stat 03/20/23 02:51 Covid-19 + FLU A/B + RSV - PCR Stat Vital Signs Vital signs: Vital Signs - 8 hr 03/20/23 02:34 03/20/23 02:35 03/20/23 02:35 Temperature Pulse Rate 70 Respiratory Rate 16 Blood Pressure 193/91 H Pulse Oximetry 91 100 Oxygen Delivery Method 03/20/23 02:39 03/20/23 03:00 03/20/23 03:01 Temperature 97.5 F L Pulse Rate 74 65 Respiratory Rate 16 21 Blood Pressure 193/91 H 190/88 H Pulse Oximetry 100 99 Oxygen Delivery Method Room Air 03/20/23 03:01 03/20/23 03:30 03/20/23 03:31 Temperature Pulse Rate 66 66 67 Respiratory Rate 19 21 27 H Blood Pressure Pulse Oximetry 99 98 98 Oxygen Delivery Method 03/20/23 03:31 03/20/23 04:00 03/20/23 04:01 Temperature Pulse Rate 68 68 Respiratory Rate 14 13 Blood Pressure 182/86 H Pulse Oximetry 97 97 Oxygen Delivery Method 03/20/23 04:01 03/20/23 04:30 03/20/23 04:30 Temperature Pulse Rate 81 Respiratory Rate 15 Blood Pressure 144/72 H 168/81 H Pulse Oximetry 98 Oxygen Delivery Method Room Air Medical Decision Making Medical Records Medical records reviewed: Yes I reviewed the patient's medical records. Lab Data Lab results reviewed: Yes I reviewed the patient's lab results. 03/20/23 02:34 03/20/23 02:34 Labs: Lab Results 03/20/23 03/20/23 Range/Units 02:34 02:55 WBC 5.7 (4.5-11.0) X10^3/uL RBC 4.68 (4.5-5.9) X10^6/uL Hgb 12.6 L (13.5-17.5) g/dL Hct 38.2 L (41-53) % MCV 81.6 (80-100) fL MCH 26.9 (26-34) PG MCHC 33.0 (30-36) % RDW 14.5 (11.6-14.8) % Plt Count 196 (150-400) X10^3/uL Neut % (Auto) 44.4 L (50-75) % Lymph % (Auto) 41.1 H (25-40) % [place] % (Auto) 9.1 (3-14) % Eos % (Auto) 4.8 H (2-4) % Baso % (Auto) 0.6 (0-2) % Neut # (Auto) 2500 (1516-4409) /uL Lymph # (Auto) 2300 (0943-9160) /uL [place] # (Auto) 500 (0-900) /uL Eos # (Auto) 300 (0-450) /uL Baso # (Auto) 0 (0-100) /uL Sodium 141 (137-145) mmol/L Potassium 4.3 (3.4-5.1) mmol/L Chloride 108 H (98-107) mmol/L Carbon Dioxide 24 (22-32) mmol/L BUN 15 (9-20) mg/dL Creatinine 0.97 (0.66-1.25) mg/dL Estimated GFR > 60 (>60) mL/min BUN/Creatinine Ratio 15.5 (6-22) Glucose 112 H (70-100) mg/dL Calcium 9.2 (8.4-10.2) mg/dL Total Bilirubin 0.6 (0.2-1.3) mg/dL AST 43 (17-59) IU/L ALT 24 (<50) IU/L Alkaline Phosphatase 142 H (38-126) U/L Total Creatine Kinase 168 (55-170) U/L Troponin I < 0.012 (0.01-0.034) ng/mL Total Protein 8.9 H (6.3-8.2) g/dL Albumin 4.2 (3.5-5.0) g/dL Globulin 4.7 H (1.7-4.1) g/dL Albumin/Globulin Ratio 0.9 L (1.0-2.8) Lipase 40 (23-300) U/L SARS-CoV-2 (PCR) Negative (Negative) Influenza A (RT-PCR) Flu a negative (NEGATIVE) Influenza B (RT-PCR) Flu b negative (NEGATIVE) RSV (PCR) Negative (Negative) Imaging Data Chest x-ray: Radiologist's Impression: No acute cardiopulmonary disease ECG Data Attestation: I personally reviewed and interpreted this ECG as follows: Interpretation: Sinus rhythm Ventricular rate is 64 Normal axis Normal QRS Normal QTC No ST T wave changes MDM Narrative Medical decision making narrative: Patient was significantly hypertensive upon EMS arrival however this improved without specific antihypertensive medications. Review his medical record shows that systolic blood pressure in the 140s to 180s is not unreasonable for him. He has been as high as 225 during prior visits here to the emergency department. He has not taken any of his blood pressure medicine in the past several weeks. He does not know what medication that he takes. He thinks lisinopril maybe 1 of his medicines. A can not refill all of his medicines because I do not know what they are. I will refill lisinopril. He was instructed to contact his primary doctor for this. Does not appear to have any acute end-organ dysfunction from his hypertension. No signs of infection. No indication for antibiotics. Chest x-ray is unremarkable. Will discharge patient home with instructions to contact his primary doctor for follow-up. He was given return precautions. He expressed understanding and agreement. Discharge Plan Departure Patient Disposition: Home Clinical Impression: Hypertension Instructions: High Blood Pressure Activity Restrictions/Additional Instructions: Your blood pressure was elevated today in the emergency department. Unfortunately could not confirm what medications you have been taking but given your history of high blood pressure and the fact that it was elevated today I do think that we should start you on medicines. I sent a prescription for a medicine called lisinopril to [facility]. This maybe different from the blood pressure medicines that you have taken in the past. I do recommend that you follow-up with your primary care doctor. It is important that you take your blood pressure medicines. Return to the emergency department for new symptoms Prescriptions: New lisinopril 20 mg tablet 20 mg PO DAILY Qty: 60 3RF No Action PNV cmb#95-ferrous fumarate-FA [] 28 mg iron- 800 mcg Tablet 1 tab PO DAILY famotidine [Pepcid AC] 10 mg Tablet 20 mg PO DAILY Stand Alone Forms: Patient Portal/API
[2023-03-20 03:02] LABS: Alanine Aminotransferase 24 IU/L (<50); Albumin 4.2 g/dL (3.5-5.0); Albumin Globulin Ratio 0.9 (1.0-2.8); Alkaline Phosphatase 142 U/L (38-126); Aspartate Aminotransferase 43 IU/L (17-59); BUN Creatinine Ratio 15.5 (6-22); Bilirubin Total 0.6 mg/dL (0.2-1.3); Blood Urea Nitrogen 15 mg/dL (9-20); Calcium 9.2 mg/dL (8.4-10.2); Carbon Dioxide 24 mmol/L (22-32); Chloride 108 mmol/L (98-107); Creatine Kinase 168 U/L (55-170); Estimated Glomerular Filt Rate > 60 mL/min (>60); Globulin 4.7 g/dL (1.7-4.1); Glucose 112 mg/dL (70-100); Lipase 40 U/L (23-300); Potassium 4.3 mmol/L (3.4-5.1); Sodium 141 mmol/L (137-145); Total Protein 8.9 g/dL (6.3-8.2)
[2023-03-20 03:03] LABS: HEMOLYSIS 50 (0-50)
[2023-03-20 03:14] LABS: Troponin I < 0.012 ng/mL (0.01-0.034)
[2023-03-20 04:15] LABS: Influenza A - CEPHEID Flu A NEGATIVE (NEGATIVE); Influenza B - CEPHEID Flu B NEGATIVE (NEGATIVE); Respiratory Syncytial Virus Negative (Negative)
[2023-03-20 04:31] LABS: COVID-19 CEPHEID 4-PLEX PCR Negative (Negative)
== END 2023-03-20 04:45 | disposition home or self-care (01) ==
PROVIDERS: Emergency Provider Emergency Medicine
DX: I10 Essential (primary) hypertension (principal); Z20.822 Contact with and (suspected) exposure to COVID-19
CPT/HCPCS: 0241U; 36415; 71045; 80053; 82550; 83690; 84484; 85025; 93005; 99284

== ENCOUNTER 2023-11-30 21:57 | Emergency (ER) | payer OTHER, MEDICAID, SELFPAY ==
[2023-11-30 22:15] VITALS: BP 188/90; PULSE 74; RESP 16; TEMP 36.4; O2SAT 98; BMI 34.6
--- NOTE | 2023-11-30 23:35 | ED.EXTPRO ---
HPI - Extremity Problem General Chief complaint: Extremity Problem,Nontraumatic Stated complaint: discoloration of rt knee and foot Time Seen by Provider: 11/30/23 22:47 Source: patient Mode of arrival: Family Vehicle History of Present Illness HPI Narrative: 53 year old male with history of tobacco use, heroin use presents by private vehicle from home for several weeks of right knee pain and progressive worsening skin coloration of his right lower extremity. Patient has history of recurrent cellulitis and with the patient's knee pain they are concerned that he may develop another infection. 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 Related Data Home Medications Medication Instructions Recorded Confirmed famotidine 10 mg tablet (Pepcid AC) 20 mg PO DAILY 08/27/18 08/27/18 vit no.95-ferrous 1 tab PO DAILY 08/27/18 08/27/18 fumarate 28 mg-folic acid 800 mcg tablet () Previous Rx's Medication Instructions Recorded lisinopril 20 mg tablet 20 mg PO DAILY #60 tabs 03/20/23 clopidogrel 75 mg tablet (Plavix) 75 mg PO DAILY #30 tabs 12/01/23 simvastatin 20 mg tablet 20 mg PO DAILY #30 tabs 12/01/23 Allergies Allergy/AdvReac Type Severity Reaction Status Date / Time No Known Allergies Allergy Verified 08/21/17 05:04 Patient History Medical History Dyspepsia Osteoarthritis of both knees High cholesterol Surgical History H/O exploratory laparotomy Hx of tonsillectomy History of appendectomy History of cholecystectomy Family History Father Head trauma Stroke Mother In good health Grandmother Cancer Sister Cancer Social History household members: significant other Smoking Status: Current every day smoker alcohol intake: former Smoking Status: Current every day smoker alcohol intake frequency: other Substance Use Type: heroin Exam Initial Vital Signs Initial Vital Signs: Vital Signs Temperature 97.6 F 11/30/23 22:15 Pulse Rate 74 11/30/23 22:15 Respiratory Rate 16 11/30/23 22:15 Blood Pressure 188/90 H 11/30/23 22:15 Pulse Oximetry 98 11/30/23 22:15 Oxygen Delivery Method Room Air 11/30/23 22:15 Const: Awake, alert, no acute distress, nontoxic appearing Cardiac: regular rate, regular rhythm RESP: unlabored, clear bilaterally, no wheezing MSK: Atraumatic, full range of motion, pulses equal Skin: Warm, Dry, intact, skin changes of peripheral vascular disease noted bilaterally, right greater than left Neuro: AO x3, CN II-XII grossly intact, moves all extremities Course Orders Ordered: ED Orders 11/30/23 23:34 CT angio abd aorta runoff Stat 11/30/23 23:50 CBC Auto Diff [Complete Blood Count AUTO DIFF] Stat CMP [Comprehensive Metabolic Panel] Stat Vital Signs Vital signs: Vital Signs - 8 hr 11/30/23 22:15 12/01/23 01:43 Temperature 97.6 F 97.3 F L Pulse Rate 74 84 Respiratory Rate 16 18 Blood Pressure 188/90 H 155/78 H Pulse Oximetry 98 97 Oxygen Delivery Method Room Air Room Air MDM - Extremity (Nontraumatic) Differential Diagnosis Differential diagnosis: Likely cellulitis, lower extremity edema and other (peripheral vascular disease) Lab Data 11/30/23 23:50 11/30/23 23:50 Labs: Lab Results 11/30/23 Range/Units 23:50 WBC 5.0 (4.5-11.0) X10^3/uL RBC 4.37 L (4.5-5.9) X10^6/uL Hgb 11.9 L (13.5-17.5) g/dL Hct 35.8 L (41-53) % MCV 82.0 (80-100) fL MCH 27.3 (26-34) PG MCHC 33.3 (30-36) % RDW 14.5 (11.6-14.8) % Plt Count 194 (150-400) X10^3/uL Neut % (Auto) 45.3 L (50-75) % Lymph % (Auto) 39.8 (25-40) % [place] % (Auto) 9.5 (3-14) % Eos % (Auto) 4.9 H (2-4) % Baso % (Auto) 0.5 (0-2) % Neut # (Auto) 2200 (8958-2866) /uL Lymph # (Auto) 2000 (1085-6273) /uL [place] # (Auto) 500 (0-900) /uL Eos # (Auto) 200 (0-450) /uL Baso # (Auto) 0 (0-100) /uL Sodium 140 (137-145) mmol/L Potassium 3.7 (3.4-5.1) mmol/L Chloride 106 (98-107) mmol/L Carbon Dioxide 25 (22-32) mmol/L BUN 14 (9-20) mg/dL Creatinine 0.91 (0.66-1.25) mg/dL Estimated GFR > 60 (>60) mL/min BUN/Creatinine Ratio 15.4 (6-22) Glucose 136 H (70-100) mg/dL Calcium 8.6 (8.4-10.2) mg/dL Total Bilirubin 0.3 (0.2-1.3) mg/dL AST 29 (17-59) IU/L ALT 23 (<50) IU/L Alkaline Phosphatase 141 H (38-126) U/L Total Protein 7.4 (6.3-8.2) g/dL Albumin 3.7 (3.5-5.0) g/dL Globulin 3.7 (1.7-4.1) g/dL Albumin/Globulin Ratio 1.0 (1.0-2.8) Imaging Data CT scan - abdomen/pelvis: Radiologist's Impression: PROCEDURE: CT ANGIO ABD AORTA RUNOFF INDICATIONS: PAD WITH SKIN CHANGES R>L TECHNIQUE: After the administration of intravenous contrast, 2.5 mm sections acquired from T12 to the feet, with optional delayed image acquisition from the knees to the feet. 3-dimensional maximum intensity projection (MIP) coronal and sagittal reformats, and/or 3-dimensional volume rendering reformatting was then performed. For radiation dose reduction, the following was used: automated exposure control. COMPARISON: None. FINDINGS: Image Quality: Diagnostic. Abdominal aorta: No aortic aneurysm. No dissection. Mild calcified plaque in the right common iliac artery. Iliac arteries are patent. Splanchnic vessels: Celiac, hepatic, splenic, SMA, KAREN are patent. Renal arteries are patent. Right lower extremity: Common femoral, femoral, profundus, popliteal arteries are patent. No critical stenosis. Mild calcified plaque in the femoral and popliteal arteries. There is three-vessel runoff. There is circumferential calcified plaque in the calf arteries. Left lower extremity: Common femoral, femoral, profundus, popliteal arteries are patent. Minimal calcified plaque in the left common femoral artery. No critical stenosis. Mild calcified plaque in the femoral and popliteal arteries. There is three-vessel runoff. There is circumferential calcified plaque in the calf arteries. Lower Chest: No significant findings. ABDOMEN: Liver: No solid mass. Gallbladder: Absent. Biliary ducts: No biliary dilation. Pancreas: No ductal dilation. Spleen: Size is within normal limits. Adrenal Glands: No adrenal nodules. Kidneys and Ureters: No hydronephrosis. No solid mass. No complex renal cystic lesion which requires follow up. Stomach and Bowel: Normal colonic caliber, without significant wall thickening. The appendix is not identified. Peritoneum: No abnormal intraperitoneal fluid. No free air. Ventral Wall: Fat containing umbilical hernia. Abdominal Nodes: Prominent right external iliac lymph node measuring 0.9 cm, (4/136). Prominent pelvic sidewall lymph nodes. Vessels: Aorta and inferior vena cava are normal in size. PELVIS: Pelvic Organs: Unremarkable. Bladder: Unremarkable. Pelvic Nodes: No enlarged lymph nodes. Miscellaneous: No inguinal hernias are seen. Left Drake's cyst. Bones: No aggressive osseous abnormality. Mild scoliosis. Multilevel DDD. Advanced degenerative changes at the knees. IMPRESSION: 1. No critical stenosis identified. Three-vessel runoff is present bilaterally. There is extensive plaque in the calf arteries. No aortic dissection. 2. Prominent right external iliac lymph node measuring 0.9 cm. Dictated by: Ihsan Holman M.D. on 12/01/2023 at 0:47 Approved by: Ihsan Holman M.D. on 12/01/2023 at 1:02 [facility] Narrative Medical decision making narrative: Progressively worsening skin changes of bilateral lower extremities. Patient has what appeared to be chronic arterial skin changes of his lower extremities, right greater than left. He still does have palpable pulses bilaterally, sensation intact. Denies claudication symptoms. He states that he was not have a primary care physician and he has had extreme difficulty in getting a PCP where he lives on [address] [facility] [address] [facility]. Laboratory work reviewed, no significant abnormalities identified. CT angio of the abdomen and pelvis with runoff shows advanced calcifications in the arteries of the calves. Patient informed of lab and imaging findings. He was encouraged repeatedly to quit smoking. He was advised that this condition will progressively worsen and we will put him at increased risk of amputation if he does not mitigate his risk factors. While pending primary care appointment patient to be started on Plavix and simvastatin for risk factor control. A business card with a QR code to see available primary care doctor's was provided to the patient and his significant other. Discharge Plan Departure Patient Disposition: Home Clinical Impression: Knee joint pain, Peripheral arterial disease Instructions: DI for Peripheral Vascular (Arterial) Disease Activity Restrictions/Additional Instructions: Your blood work today showed normal electrolytes, normal hemoglobin, normal kidney function, and normal liver function. The skin changes on your lower legs are likely from peripheral arterial disease. The medications I am prescribing are a bridge until you see a primary doctor. This is not a substitute for a primary care doctor evaluation and workup. First, I recommend that you stop smoking entirely 2nd, I am starting you on a low dose blood thinning medication called Plavix Third, I will start you on a low-dose cholesterol medication to help prevent further plaque from building up. Call the phone number on the card provided to schedule a follow up appointment with a primary care doctor. They may decide to change your medications at that time. Your CT today did not show any obvious bony abnormalities with your knee. Prescriptions: New clopidogrel [Plavix] 75 mg tablet 75 mg PO DAILY Qty: 30 0RF simvastatin 20 mg tablet 20 mg PO DAILY Qty: 30 0RF No Action PNV cmb#95-ferrous fumarate-FA [] 28 mg iron- 800 mcg Tablet 1 tab PO DAILY famotidine [Pepcid AC] 10 mg Tablet 20 mg PO DAILY lisinopril 20 mg tablet 20 mg PO DAILY Qty: 60 3RF Stand Alone Forms: Patient Portal/API
[2023-11-30 23:59] LABS: Add Manual Diff / Slide Review NO; Basophils Absolute Auto 0 /uL (0-100); Basophils Percent Auto 0.5 % (0-2); Eosinophils Absolute Auto 200 /uL (0-450); Eosinophils Percent Auto 4.9 % (2-4); Hematocrit 35.8 % (41-53); Hemoglobin 11.9 g/dL (13.5-17.5); Lymphocytes Absolute Auto 2000 /uL (1100-4500); Lymphocytes Percent Auto 39.8 % (25-40); Mean Corpuscular HGB Conc 33.3 % (30-36); Mean Corpuscular Hemoglobin 27.3 PG (26-34); Monocytes Absolute Auto 500 /uL (0-900); Monocytes Percent Auto 9.5 % (3-14); Neutrophils Absolute Auto 2200 /uL (1500-7000); Neutrophils Percent Auto 45.3 % (50-75); Platelet Count 194 X10^3/uL (150-400); Red Blood Cell Count 4.37 X10^6/uL (4.5-5.9); Red Cell Distribution Width 14.5 % (11.6-14.8)
[2023-12-01 00:17] LABS: Alanine Aminotransferase 23 IU/L (<50); Albumin 3.7 g/dL (3.5-5.0); Alkaline Phosphatase 141 U/L (38-126); Aspartate Aminotransferase 29 IU/L (17-59); BUN Creatinine Ratio 15.4 (6-22); Bilirubin Total 0.3 mg/dL (0.2-1.3); Blood Urea Nitrogen 14 mg/dL (9-20); Calcium 8.6 mg/dL (8.4-10.2); Carbon Dioxide 25 mmol/L (22-32); Chloride 106 mmol/L (98-107); Estimated Glomerular Filt Rate > 60 mL/min (>60); Globulin 3.7 g/dL (1.7-4.1); Glucose 136 mg/dL (70-100); HEMOLYSIS < 15 (0-50); Potassium 3.7 mmol/L (3.4-5.1); Sodium 140 mmol/L (137-145); Total Protein 7.4 g/dL (6.3-8.2)
[2023-12-01 01:43] VITALS: BP 155/78; PULSE 84; RESP 18; TEMP 36.3; O2SAT 97
== END 2023-12-01 01:44 | disposition home or self-care (01) ==
PROVIDERS: Emergency Provider Emergency Medicine
DX: I73.9 Peripheral vascular disease, unspecified (principal); M25.561 Pain in right knee
CPT/HCPCS: 36415; 75635; 80053; 85025; 99283; 99284; Q9967